=== PATIENT | female | born 2000 | race Caucasian/White ===

== ENCOUNTER → 2021-06-28 14:10 | Outpatient (BNVA) | payer SELFPAY | PROVIDERS: Visit Provider Nurse Practitioner Women's Health | DX: Z01.419 Encounter for gynecological examination (general) (routine) without abnormal findings (principal); Z11.3 Encounter for screening for infections with a predominantly sexual mode of transmission | CPT/HCPCS: 86592; 86803; 87340; 87491; 87591; 87661; 87806; 88175 ==

== ENCOUNTER 2022-02-18 13:08 | Emergency (ER) | payer SELFPAY ==
[2022-02-18 14:15] VITALS: BP 119/70; PULSE 114; RESP 16; TEMP 36.9; O2SAT 99; BMI 34.3
[2022-02-18 15:43] LABS: Basophils # 0.1 10^3/uL (0.0-0.1); Basophils % 0.5 %; Eosinophils # 0.2 10^3/uL (0.0-0.8); Eosinophils % 1.7 %; Hematocrit 39.7 % (37.0-47.0); Hemoglobin 13.4 g/dL (11.5-15.3); Lymphocytes # 3.7 10^3/uL (0.8-4.8); Lymphocytes % 33.9 %; Mean Corpuscular HGB Conc 33.8 g/dL (30.0-36.0); Mean Corpuscular Hemoglobin 27.8 pg (28.0-34.0); Mean Corpuscular Volume 82.4 fl (81-99); Monocytes # 0.7 10^3/uL (0.2-0.9); Monocytes % 6.9 %; Neutrophils # 6.13 10^3/uL (1.8-7.7); Neutrophils % 56.7 %; Nucleated Red Blood Cells % 0 %; Platelet Count 345 10^3/cmm (130-400); Red Blood Count 4.82 10^6/uL (4.1-5.3); Red Cell Distribution Width 12.4 % (12.1-15.1); White Blood Count 10.8 10^3/uL (4.0-10.0)
[2022-02-18 16:00] LABS: Alanine Aminotransferase 12 U/L (0-33); Albumin Level 4.7 g/dL (3.5-5.2); Alkaline Phosphatase 102 IU/L (35-105); Anion Gap 15.3 (5-19); Aspartate Amino Transferase 17 U/L (0-32); Blood Urea Nitrogen 12 mg/dL (6-20); Calcium 9.2 mg/dL (8.5-10.5); Carbon Dioxide 26 mmol/L (22-29); Chloride 102 mmol/L (98-107); Globulin 2.7 g/dL (1.3-4.6); Glucose 90 mg/dL (65-115); Osmolality Calculated 287 mOsm/kg (285-295); Potassium 4.3 mmol/L (3.5-5.1); Sodium 139 mmol/L (136-145); Total Bilirubin 0.5 mg/dL (0.15-1.2); Total Protein 7.4 g/dL (6.6-8.7)
[2022-02-18 16:24] LABS: Add Urine Microscopic? NO; Charge for UA Resulting for Rev
[2022-02-18 16:33] LABS: Bilirubin Urine Neg (Negative); Blood Urine Neg (Negative); Glucose Urine UA Norm (Normal); Ketones Urine Negative (Negative); Leukocyte Esterase Urine Negative (Negative); Nitrate Urine Negative (Negative); Protein Urine Neg (Negative); Specific Gravity, Urine 1.025 (1.005-1.030); Urine Appearance Clear (CLEAR); Urine Color Yellow (Yellow); Urobilinogen Urine 1 mg/dL (Negative); pH Urine 6 (5-7)
[2022-02-18 17:32] LABS: HCG Qualitative Urine. Negative (Negative)
--- NOTE | 2022-02-18 17:42 | USR_ITS ---
PROCEDURE INFORMATION: Exam: US Abdomen, Limited; Right Upper Quadrant Exam date and time: 02/18/2022 5:53 PM Age: 21 years old Clinical indication: Abdominal pain; Additional info: Ruq pain TECHNIQUE: Imaging protocol: US abdomen. Real time ultrasound with image documentation. Limited exam focused on the right upper quadrant. COMPARISON: No relevant prior studies available. FINDINGS: Liver: Unremarkable as visualized. Gallbladder: Partially contracted. No gallstones. No gallbladder wall thickening or pericholecystic fluid. 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 Common bile duct: No stones. No ductal dilatation. US/US gall bladder 90042 IMPRESSION: No acute sonographic findings.
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
[2022-02-18 18:33] VITALS: BP 110/64; PULSE 86; RESP 17; O2SAT 98
[2022-02-18 19:25] VITALS: BP 108/65; PULSE 86; RESP 18; O2SAT 99
== END 2022-02-18 19:36 | disposition home or self-care (01) ==
PROVIDERS: Emergency Medicine; Emergency Provider Nurse Practitioner Family
DX: R10.11 Right upper quadrant pain (principal)
CPT/HCPCS: 36415; 76705; 80053; 81003; 81025; 85025; 99283

== ENCOUNTER 2023-04-01 20:06 | Emergency (ER) | payer SELFPAY ==
[2023-04-01 20:25] VITALS: BP 119/80; PULSE 84; RESP 14; TEMP 36.3; O2SAT 100; BMI 32.3
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
[2023-04-01 21:39] VITALS: BP 119/76; PULSE 81; RESP 14; TEMP 37.1; O2SAT 98
--- NOTE | 2023-04-05 11:35 | DCPLANNER ---
application support manager called patient due to no primary care physician - patient declines at this time.
== END 2023-04-01 22:11 | disposition home or self-care (01) ==
PROVIDERS: Emergency Provider Nurse Practitioner Family
DX: H66.92 Otitis media, unspecified, left ear (principal)
CPT/HCPCS: 99283

== ENCOUNTER 2023-04-04 03:12 | Emergency (ER) | payer SELFPAY ==
[2023-04-04 03:19] VITALS: BP 111/95; PULSE 95; RESP 16; TEMP 37.2; O2SAT 98; BMI 25.8
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
[2023-04-04] MEDS: HYDROcodone-acetaminophen 5-325 mg Tablet 1 TAB PO (03:31)
[2023-04-04 03:33] VITALS: PULSE 105; RESP 16; O2SAT 98
--- NOTE | 2023-04-11 14:17 | DCPLANNER ---
club manager called patient due to no primary care physician - patient declines at this time.
== END 2023-04-04 03:33 | disposition home or self-care (01) ==
PROVIDERS: Emergency Provider Emergency Medicine
DX: H60.91 Unspecified otitis externa, right ear (principal)
CPT/HCPCS: 99283

== ENCOUNTER 2023-11-07 11:51 | Emergency (ER) | payer MEDICAID, SELFPAY ==
[2023-11-07 11:53] VITALS: BP 121/79; PULSE 111; RESP 16; TEMP 37; O2SAT 97; BMI 31.1
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
[2023-11-07 12:20] LABS: Basophils % 0.3 %; Eosinophils # 0.1 10^3/uL (0.0-0.8); Eosinophils % 0.8 %; Hematocrit 35.6 % (36-47); Lymphocytes # 2.5 10^3/uL (0.8-4.8); Lymphocytes % 21.5 %; Mean Corpuscular HGB Conc 34.6 g/dL (30-55); Mean Corpuscular Hemoglobin 28.9 pg (27-33); Mean Corpuscular Volume 83.6 fl (85-98); Mean Platelet Volume 9.7 fL (7.4-10.4); Monocytes # 0.8 10^3/uL (0.2-0.9); Monocytes % 6.8 %; Neutrophils % 70.3 %; Nucleated Red Blood Cells % 0 %; Platelet Count 272 10^3/cmm (157-399); Red Blood Count 4.26 10^6/uL (3.85-5.65); Red Cell Distribution Width 13.3 % (12.1-15.1); White Blood Count 11.81 10^3/uL (3.29-11.43)
[2023-11-07 12:34] LABS: INR 0.98 (0.8-1.2); Partial Thromboplastin Time 27.2 SECONDS (23.9-36.7)
[2023-11-07 12:40] LABS: Alanine Aminotransferase 34 U/L (0-33); Albumin Level 3.9 g/dL (3.5-5.2); Alkaline Phosphatase 65 U/L (35-105); Anion Gap 13.8 (5-19); Aspartate Amino Transferase 22 U/L (0-32); Blood Urea Nitrogen 4 mg/dL (6-20); Calcium 9.3 mg/dL (8.5-10.5); Carbon Dioxide 23 mmol/L (22-29); Chloride 104 mmol/L (98-107); Globulin 3.3 g/dL (1.3-4.6); Glomerular Filtration Rate 152.9 mL/min (90-130); Glucose 73 mg/dL (65-115); Osmolality Calculated 279 mOsm/kg (285-295); Potassium 3.8 mmol/L (3.5-5.1); Sodium 137 mmol/L (136-145); Total Bilirubin 0.5 mg/dL (0.15-1.2); Total Protein 7.2 g/dL (6.6-8.7)
[2023-11-07 12:51] LABS: Add Urine Microscopic? NO; Charge for UA Resulting for Rev
[2023-11-07 13:03] LABS: Bilirubin Urine Neg (Negative); Blood Urine Neg (Negative); Glucose Urine UA Norm (Normal); Ketones Urine Negative (Negative); Leukocyte Esterase Urine Negative (Negative); Nitrate Urine Negative (Negative); Protein Urine Neg (Negative); Urine Appearance Clear (CLEAR); Urine Color Yellow (Yellow); Urobilinogen Urine Neg (Negative); pH Urine 7 (5-7)
== END 2023-11-07 13:27 | disposition home or self-care (01) ==
PROVIDERS: Emergency Provider Family Medicine
DX: K21.9 Gastro-esophageal reflux disease without esophagitis (principal); R11.11 Vomiting without nausea
CPT/HCPCS: 80053; 81003; 85025; 85610; 85730; 99283

== ENCOUNTER 2023-11-20 14:54 | Outpatient (CLI) | payer MEDICAID, SELFPAY ==
[2023-11-20 15:10] VITALS: BMI 31.4
[2023-11-20 15:22] VITALS: RESP 17
--- NOTE | 2023-11-20 15:22 | US_ITS ---
WS: [id number] ULTRASOUND OB FOCUSED HISTORY: possible SROM COMPARISON: None available. Single intrauterine gestation is identified in breech position. Cervix is closed measuring 4.7 cm. Th ere is a normal amount of amniotic fluid surrounding the fetus. [place] is 9.6 cm. heart rate at 153 BPM. Posterior placenta with no previa or abruption. Grade 1. IMPRESSION: 1. Normal amniotic fluid. 2. Posterior placenta with no abruption or previa. 3. Normal cardiac activity.
[2023-11-20 16:33] LABS: Actim Prom Negative
== END 2023-11-20 17:42 | disposition home or self-care (01) ==
LOC: OPOB 14:59 → OBGYN 15:04
PROVIDERS: Obstetrics & Gynecology; Visit Provider Obstetrics & Gynecology
DX: O26.899 Other specified pregnancy related conditions, unspecified trimester (principal); Z3A.00 Weeks of gestation of pregnancy not specified; R10.9 Unspecified abdominal pain; N89.8 Other specified noninflammatory disorders of vagina
CPT/HCPCS: 76815; 84112; 99211

== ENCOUNTER → 2024-01-23 15:22 | Outpatient (BNVA) | payer MEDICAID, SELFPAY | PROVIDERS: Visit Provider Obstetrics & Gynecology | DX: Z3A.25 25 weeks gestation of pregnancy (principal); Z34.90 Encounter for supervision of normal pregnancy, unspecified, unspecified trimester | CPT/HCPCS: 81000; 85025; 86850 ==

== ENCOUNTER → 2024-02-03 07:56 | Outpatient (BNVA) | payer MEDICAID, SELFPAY | PROVIDERS: Visit Provider Obstetrics & Gynecology | DX: Z3A.25 25 weeks gestation of pregnancy (principal) | CPT/HCPCS: 81000; 82950 ==

== ENCOUNTER → 2024-02-20 08:13 | Outpatient (BNVA) | payer MEDICAID, SELFPAY | PROVIDERS: Visit Provider Obstetrics & Gynecology | DX: O09.93 Supervision of high risk pregnancy, unspecified, third trimester (principal) | CPT/HCPCS: 81000 ==

== ENCOUNTER → 2024-02-21 08:22 | Outpatient (BNVA) | payer MEDICAID, SELFPAY | PROVIDERS: Visit Provider Obstetrics & Gynecology | DX: O09.93 Supervision of high risk pregnancy, unspecified, third trimester (principal) | CPT/HCPCS: 82951; 82952 ==

== ENCOUNTER 2024-02-26 18:53 | Outpatient (CLI) | payer MEDICAID, SELFPAY ==
[2024-02-26 19:10] VITALS: BP 121/62; PULSE 102
--- NOTE | 2024-02-26 19:20 | USR_ITS ---
PROCEDURE INFORMATION: Exam: US Biophysical Profile Without Non-Stress Test Exam date and time: 02/26/2024 8:48 PM Age: 23 years old Clinical indication: Injury or trauma; Fall; Injury indication: Patient fell while showering. She landed on her buttocks. No vaginal bleeding. Injury date: 02/26/2024; ; Patient HX: G1-p0-a0-l0 TECHNIQUE: Imaging protocol: US biophysical profile without non-stress testing. COMPARISON: US OB limited [id number] 11/20/2023 3:41 PM FINDINGS: heart rate: 157 bpm presentation: Cephalic Placenta: Posterior and Fundal grade 1 placenta without previa. Amniotic fluid (Qualitative): Amniotic fluid volume is normal. Amniotic fluid index: [place] is 20.93 cm. BIOPHYSICAL PROFILE: breathing (BPP): 2 /2 gross body movement (BPP): 2 /2 tone (BPP): 2 /2 Amniotic fluid (BPP): 2 /2 Biophysical profile score (BPP): 8 /8 MATERNAL ANATOMY: Cervix: Cervical length measures approximately 4 cm. Obscured by the head. US/US OB BPP wo NST [id number] IMPRESSION: 1. Biophysical profile score of 8/8.
[2024-02-26 19:22] VITALS: BMI 32.0
[2024-02-26 21:15] VITALS: BP 121/62; PULSE 102; RESP 16; TEMP 36.7
== END 2024-02-26 21:20 | disposition home or self-care (01) ==
LOC: OPOB 18:56 → OBGYN 18:57
PROVIDERS: Visit Provider Obstetrics & Gynecology
DX: O26.899 Other specified pregnancy related conditions, unspecified trimester (principal); Z3A.00 Weeks of gestation of pregnancy not specified; Z91.81 History of falling
CPT/HCPCS: 59025; 76819; 99211

== ENCOUNTER 2024-03-09 15:53 | Outpatient (CLI) | payer MEDICAID, SELFPAY ==
[2024-03-09 15:53] VITALS: BMI 34.3
[2024-03-09 16:19] VITALS: BP 118/72; PULSE 103
[2024-03-09 16:26] VITALS: BP 118/72; PULSE 103
[2024-03-09 17:57] LABS: Nitrazine Paper, PH Negative
== END 2024-03-09 16:28 | disposition home or self-care (01) ==
LOC: OPOB 15:55 → OBGYN 15:56
PROVIDERS: Visit Provider Obstetrics & Gynecology
DX: O26.899 Other specified pregnancy related conditions, unspecified trimester (principal); Z3A.00 Weeks of gestation of pregnancy not specified; N89.8 Other specified noninflammatory disorders of vagina
CPT/HCPCS: 59025; 83986; 99211

== ENCOUNTER → 2024-03-12 07:47 | Outpatient (BNVA) | payer MEDICAID, SELFPAY | PROVIDERS: Visit Provider Obstetrics & Gynecology | DX: O09.93 Supervision of high risk pregnancy, unspecified, third trimester (principal) | CPT/HCPCS: 81000; 87081 ==

== ENCOUNTER → 2024-03-16 08:03 | Outpatient (BNVA) | payer MEDICAID, SELFPAY | PROVIDERS: Visit Provider Obstetrics & Gynecology | DX: O09.93 Supervision of high risk pregnancy, unspecified, third trimester (principal) | CPT/HCPCS: 81000 ==

== ENCOUNTER 2024-03-26 11:41 | Inpatient (IN) | payer MEDICAID, SELFPAY ==
[2024-03-26] VITALS (12 sets, daily range): BP systolic 115–141; BP diastolic 69–85; PULSE 70–96; RESP 16; TEMP 36.6–36.7; BMI 35.5
[2024-03-26 12:18] LABS: Basophils % 0.4 %; Eosinophils # 0.1 10^3/uL (0.0-0.8); Eosinophils % 0.6 %; Lymphocytes # 2.3 10^3/uL (0.8-4.8); Mean Corpuscular Hemoglobin 28.1 pg (27-33); Mean Corpuscular Volume 82.6 fl (85-98); Mean Platelet Volume 11.1 fL (7.4-10.4); Monocytes # 0.9 10^3/uL (0.2-0.9); Monocytes % 8.2 %; Neutrophils # 7.26 10^3/uL (1.8-7.7); Neutrophils % 68.1 %; Nucleated Red Blood Cells % 0 %; Platelet Count 240 10^3/cmm (157-399); Red Blood Count 3.63 10^6/uL (3.85-5.65); Red Cell Distribution Width 13.1 % (12.1-15.1); White Blood Count 10.64 10^3/uL (3.29-11.43)
[2024-03-26] MEDS: miSOPROStol 100 mcg tablet 25 MCG VAGINAL ×2 (12:28→16:35)
[2024-03-26] MEDS: calcium carbonate 500 mg Chew Tablet 1000 MG PO ×2 (14:16→21:49)
[2024-03-26] MEDS: acetaminophen 325 mg Tablet 650 MG PO (21:49)
[2024-03-26] MEDS: dextrose 5%-lactated ringers 1,000 ML 125 ML IV (22:33)
[2024-03-27] VITALS (65 sets, daily range): BP systolic 97–131; BP diastolic 53–89; PULSE 58–97; RESP 16–19; TEMP 36.7; O2SAT 93–100
[2024-03-27] MEDS: lactated ringers 1,000 ML 999 ML IV ×3 (00:03→11:42)
[2024-03-27] MEDS: fentaNYL 50 mcg/mL INJ 2mL IVP ×3 (00:19→08:45)
[2024-03-27] MEDS: miSOPROStol 100 mcg tablet 25 MCG VAGINAL (02:26)
[2024-03-27] MEDS: calcium carbonate 500 mg Chew Tablet 1000 MG PO ×2 (03:34→15:20)
[2024-03-27] MEDS: ondansetron 2 mg/ML SDV 2 mL 4 MG IVP ×2 (05:05→10:31)
[2024-03-27] MEDS: oxytocin 30 UNIT/500 ML BAG IV (08:39)
[2024-03-27] MEDS: ROPivacaine syringe 100 MG/50 ML SYRINGE 10 MG EPIDURAL (11:43)
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
--- NOTE | 2024-03-27 13:08 | ANES.PROC ---
Anesthesia Procedures Procedure/Date: 03/27/24 Epidural: Time Out Performed: Yes Consents Signed: Procedure Consent Consent: requested by attending/covering physician, from patient, from other, risks and benefits reviewed, patient agrees to proceed and emergency procedure Lumbar Level: L3-L4 Epidural position: laying on side Epidural procedure: sterile prep of area, 1% lidocaine to numb the area, 18 g needle, negative for paresthesia passed, neg for paresthesia, test dose given, 1.5% xylocaine 1:200k epi (5), 0.2% Ropivacaine bolus ml (5), placed PCEA, no systemic response, sterile dressing applied, L.U.D. no apparent complications and 0.2% Ropiavacaine @ mls/hr (13) Additional Comments: Placed epidural L3-4, but became disconnected almost immediately at hub. Attempted to sterilely clean and cut line and attach new sterile tip, but in process discovered the air-fluid level in the epidural had dropped enough that there wouldn't be much slack to allow for patient movement. Due to risk of infection at that point, the epidural was removed and another attempt at L2-3 was taken, but kept encountering bony processes. Dropped back down to L3-4 and placed succcesfully at 5.5 cm, threaded to 11 cm.
[2024-03-27] MEDS: dextrose 5%-lactated ringers 1,000 ML 125 ML IV (14:56)
--- NOTE | 2024-03-27 16:23 | PM.OPHPUD ---
Labor & Delivery H&P Update Date of Procedure: March 27, 2024 Date H&P Performed: 03/26/24 H&P update information: I have reviewed H&P completed within last 30 days, I have examined patient prior to procedure and No changes to prior documentation Admission Diagnosis:
--- NOTE | 2024-03-27 16:24 | P.PCNOB_ITS ---
Delivery Note: Date of delivery: March 27, 2024 Pre-delivery diagnoses: Term Post-delivery diagnoses: Term delivered Procedure: Vacuum-assisted vaginal delivery Delivering Physician: Joaquim Kapoor MD Estimated blood loss (mL): 300 Delivery: The patient was noted to be complete and pushing, so was placed in the dorsal lithotomy position, prepped and draped in the usual sterile fashion for a va ginal delivery. Pt. Noted to have epidural anesthesia. At [] the patient delivered a viable 39 weeks female weighing 3060 g with scores of 7 and 9 at one and five minutes, respectively. The vertex was delivered spontaneously over intact perineum. The patient was asked to push and heart tracing was noted to the decrease outlet vacuum was applied to the head and delivered in the TRA position, over an intact perineum. A nuchal cord was checked and 1 noted, and an relief from around the neck and around head as necessary. The anterior shoulder delivered easily and the posterior shoulder followed. The remainder of the infant was easily delivered and the oropharynx and nasopharynx was bulb suctioned. The infant was noted to have spontaneous cry and spontaneous movement of all four extremities. The cord was clamped x 2 and cut and noted to have 2 arteries and one vein. The infant was passed to the waiting nurse where nursing personnel were in attendance. Cord blood sample was then obtained. The placenta delivered intact spontaneous and the uterus was explored. 20 units of Pitocin was placed in the IV bag to firm the uterus. Examination of the cervix and vaginal vault did not reveal any lacerations. A vaginal pack was then placed. Examination of the perineum showed no laceration. The vaginal pack was then removed. The patient tolerated this procedure well, and recovered in L&D with her [or note if infant taken to NICU]. All sponge and needle counts were correct. Post-Delivery Status: Good and stable History History History 1 Term Miscarriages/Ectopic Living Children A&P Assessment and plan (1) , delivered: Plan observation Coding Level of Care Code Acute Code for Chg Fwd Diagnoses , delivered O80
[2024-03-27] MEDS: HYDROcodone-acetaminophen 5-325 mg Tablet PO (17:42)
[2024-03-27] MEDS: docusate sodium 100 mg Capsule PO (17:43)
[2024-03-27 19:03] LABS: Amphetamines Screen Urine Negative (Negative); Barbiturates Screen Urine Negative (Negative); Benzodiazepines Screen Urine Negative (Negative); Cocaine Screen Urine Negative (Negative); Opiate Screen Urine Negative (Negative); PCP Screen Urine Negative (Negative); THC Screen Urine Negative (Negative)
[2024-03-28 00:28] VITALS: BP 110/72; PULSE 74; O2SAT 98
[2024-03-28] MEDS: HYDROcodone-acetaminophen 5-325 mg Tablet PO (01:32)
[2024-03-28 02:55] VITALS: BP 113/71; PULSE 68; RESP 16
[2024-03-28 04:55] VITALS: BP 118/74; PULSE 82; RESP 16; TEMP 36.8
[2024-03-28 05:00] LABS: Hematocrit 29.6 % (36-47); Mean Corpuscular HGB Conc 32.8 g/dL (30-55); Mean Corpuscular Hemoglobin 27.6 pg (27-33); Mean Corpuscular Volume 84.3 fl (85-98); Mean Platelet Volume 10.8 fL (7.4-10.4); Platelet Count 225 10^3/cmm (157-399); Red Blood Count 3.51 10^6/uL (3.85-5.65); Red Cell Distribution Width 13.1 % (12.1-15.1); White Blood Count 13.93 10^3/uL (3.29-11.43)
--- NOTE | 2024-03-28 08:00 | ANE.PACU2 ---
Inpatient post-anesthesia follow up: Airway intact: Yes Vital signs: Temperature 98.4 F Pulse Rate 71 Respiratory Rate 16 Blood Pressure 118/81 Pulse Oximetry 98 Oxygen Delivery Me thod Room Air Oxygen Flow Rate 10 Fraction of Inspir ed Oxygen Hydration adequate: Yes Nausea and vomiting: No Pain level: 1 Mental status: Baseline Epidural Start/End: Epidural Start Date: 03/25/24 Epidural Start Time: 11:40 Epidural End Date: 03/25/24 Epidural End Time: 18:00
[2024-03-28] MEDS: PRENATAL VIT NO.130/IRON/FOLIC 1 EACH TABLET PO (08:52)
[2024-03-28] MEDS: docusate sodium 100 mg Capsule PO (08:52)
[2024-03-28] MEDS: ibuprofen 800 mg tablet PO ×2 (08:52→15:50)
[2024-03-28 10:20] VITALS: BP 121/78; PULSE 78; TEMP 36.7
[2024-03-28] MEDS: benzocaine-menthol 78 gm Canister 1 SPRAY TOPICAL (11:35)
[2024-03-28] MEDS: lanolin oint 7 gm 1 APPLIC TOPICAL (11:35)
--- NOTE | 2024-03-28 15:22 | PM.OBGYDC ---
Discharge Providers RESIDENCE HALL DIRECTOR Date of Admission: 03/26/24 11:41 Date of Discharge: 03/28/24 Attending Provider at Admission: Joaquim Kapoor MD Attending Provider at Discharge: Joaquim Kapoor MD Primary RESIDENCE HALL DIRECTOR: Joaquim Kapoor MD Reason for Visit Reason for Visit: IOL Hospital Course Hospital Course Ms. Nelson 23-year-old female G1, P1 with estimated gestational age of 39 weeks, admitted for elective induction. Misoprostol was given for cervical ripening follow-up by oxytocin augmentation. She had an outlet vacuum assisted vaginal delivery without complications. She delivered a viable 39 weeks female infant weighing 3060 g with scores of 7 and 9. observation was uneventful. Tolerating diet well. Ambulating without difficulty. She was counseled regarding pelvic rest for 6 weeks (no sex, no tampons, no vaginal douches). Return to the emergency room if any fever, increased bleeding or pain and scheduled to follow-up at the clinic at the 6-week visit. Physical Exam Narrative: GA; alert and oriented x 3 HEENT: normal Breasts: engorged Nipples - skin intact Lungs; clear to auscultation Heart: regular rhythm, no murmurs. Abd: Appropriately tender. BS+. Uterine fundus below umbilicus. No Fundal Tenderness. Perineum: normal lochia. Extremities: no edema, no cyanosis, no tenderness. Urinary Catheter Management: Alva: Cath Placed During This Visit: yes, but has since been removed by the nurse Reason for Continuing Indwelling Catheter: Decision to DC Catheter Urinary Catheter Date of Insertion: 03/27/24 Urinary Catheter Time of Insertion: 12:04 Date Urinary Catheter Removed: 03/27/24 Time Urinary Catheter Discontinued: 13:12 History History History 1 Term Miscarriages/Ectopic Living Children Discharge Data Studies Completed and Pending Laboratory Results WBC 13.93 10^3/uL (3.29-11.43) H 03/28/24 04:54 RBC 3.51 10^6/uL (3.85-5.65) L 03/28/24 04:54 Hgb 9.70 g/dL (11.27-16.99) L 03/28/24 04:54 Hct 29.6 % (36-47) L 03/28/24 04:54 MCV 84.3 fl (85-98) L 03/28/24 04:54 MCH 27.6 pg (27-33) 03/28/24 04:54 MCHC 32.8 g/dL (30-55) 03/28/24 04:54 RDW 13.1 % (12.1-15.1) 03/28/24 04:54 Plt Count 225 10^3/cmm (157-399) 03/28/24 04:54 MPV 10.8 fL (7.4-10.4) H 03/28/24 04:54 Neut % (Auto) 68.1 % 03/26/24 11:52 Lymph % (Auto) 22.0 % 03/26/24 11:52 [place] % (Auto) 8.2 % 03/26/24 11:52 Eos % (Auto) 0.6 % 03/26/24 11:52 Baso % (Auto) 0.4 % 03/26/24 11:52 Neut # (Auto) 7.26 10^3/uL (1.8-7.7) 03/26/24 11:52 Lymph # (Auto) 2.3 10^3/uL (0.8-4.8) 03/26/24 11:52 [place] # (Auto) 0.9 10^3/uL (0.2-0.9) 03/26/24 11:52 Eos # (Auto) 0.1 10^3/uL (0.0-0.8) 03/26/24 11:52 Baso # (Auto) 0.0 10^3/uL (0.0-0.1) 03/26/24 11:52 Nucleated RBC % (auto) 0 % 03/26/24 11:52 Nucleated RBCs # 0.0 /100WBC 03/26/24 11:52 Urine Opiates Screen Negative ng/mL (Negative) 03/27/24 11:40 Ur Barbiturates Screen Negative ng/mL (Negative) 03/27/24 11:40 Ur Phencyclidine Scrn Negative ng/mL (Negative) 03/27/24 11:40 Ur Amphetamines Screen Negative ng/mL (Negative) 03/27/24 11:40 U Benzodiazepines Scrn Negative ng/mL (Negative) 03/27/24 11:40 Urine Cocaine Screen Negative ng/mL (Negative) 03/27/24 11:40 U Marijuana (THC) Screen Negative ng/mL (Negative) 03/27/24 11:40 Blood Type O Negative 03/26/24 11:52 Rho(D) Type Rh negative 03/26/24 11:52 Antibody Screen Positive 03/26/24 11:52 Antibody Identification Anti-D 03/26/24 11:52 Vitals Last Vital Signs Temp 98.0 F 03/28/24 10:20 Pulse 78 03/28/24 10:20 Resp 16 03/28/24 04:55 BP 121/78 03/28/24 10:20 Pulse Ox 98 03/28/24 00:28 O2 Del Method Room Air 03/28/24 10:20 O2 Flow Rate 10 03/27/24 15:03 Results Labs OB ([facility]): Obstetrics US 11/20/23 Obstetrics US/Biophysical Profile 02/26/24 Blood Type O Negative 03/26/24 Antibody Screen Positive 03/26/24 Hct 29.6 % (36-47) L 03/28/24 Hgb 9.70 g/dL (11.27-16.99) L 03/28/24 Rho(D) Type Rh negative 03/26/24 Plt Count 225 10^3/cmm (157-399) 03/28/24 Hep Bs Antigen Non-reactive (Nonreactive) 06/28/21 Hepatitis C Antibody Non-reactive (Nonreactive) 06/28/21 RPR Nonreactive (Nonreactive) 06/28/21 HIV 1&2 Ab & HIV 1 Ag Non-reactive (Non-Reactiv) 06/28/21 Glucose 1 Hr 50 gm 173 mg/dL (85-140) H 02/03/24 Gest Glucose Tolerance mg/dL 02/21/24 HCG, Qual Negative (Negative) 02/18/22 Urine Opiates Screen Negative ng/mL (Negative) 03/27/24 Ur Barbiturates Screen Negative ng/mL (Negative) 03/27/24 Ur Phencyclidine Scrn Negative ng/mL (Negative) 03/27/24 Ur Amphetamines Screen Negative ng/mL (Negative) 03/27/24 U Benzodiazepines Scrn Negative ng/mL (Negative) 03/27/24 Urine Cocaine Screen Negative ng/mL (Negative) 03/27/24 U Marijuana (THC) Screen Negative ng/mL (Negative) 03/27/24 Pap Smear Interpret See note A 06/28/21 Discharge Plan Discharge Patient Disposition: Home Condition: Stable Prescriptions: New docusate sodium [Colace] 100 mg capsule 100 mg PO BID Qty: 60 0RF ibuprofen 800 mg tablet 800 mg PO TID PRN (Reason: pain) Qty: 60 0RF acetaminophen 325 mg capsule 325 mg PO Q4H PRN (Reason: fever or pain) Qty: 60 0RF ferrous sulfate [Iron (ferrous sulfate)] 325 mg (65 mg iron) tablet 325 mg PO BID Qty: 60 0RF Continued PNV cmb#95-ferrous fumarate-FA [] 28 mg iron- 800 mcg Tablet 1 tab PO DAILY Discharge Orders: Discharge Order (Routine); Ordered 03/28/24 Ordered By: Joaquim Kapoor Discharge Diet: Regular Discharge Activity: Limit activity as instructed Patient Instructions: Caring for Your Baby (GEN), Bleeding (GEN), Vaginal Delivery (GEN), Your [place]'s Appearance (GEN), Opioid Safety Activity Restrictions/Additional Instructions: 1. Please call [facility] on next working day to make your visit appointment in 6 weeks. 2. Please stay home until you come back to the clinic on first post-hospatilization check up. 3. Please follow instructions on your medications CAREFULLY. 4. If you have abdominal incision, do not cover it unless dressing is necessary because of drainage. OK to shower, but avoid bath. Leave steri-strips until they fall off. If they are still on one week after surgery, you may remove them. 5. If you had vaginal surgery or vaginal repair, Dr. Kapoor may instruct you to take SITZ bath. 6. Yellow, blood tinged odorous vaginal discharge is usually normal after hysterectomy or vaginal surgeries. 7. No SEXUAL INTERCOURSE, tampons, or douches until you are completely released from the post-operative care. 8. Avoid constipation by eating right and maybe using some Metamucil or Milk of Magnesia. 9. All prescription refills are given during the working hours. Please do no wait till it runs out. Call the clinic at [phone] before your medication runs out. The clinic will get in touch with your doctor to prescribe medications if necessary. 10. Please remain within 40 mile radius from our hospital because emergencies do happen now and then during the post-operative period. 11. If you have stairs at home, take one step at a time slowly and minimize the number of trips. It helps to stay in one floor for the next few days. No lifting except what you can lift by one hand until you are released from the post-operative care. 12. Driving is discouraged until you are well healed. It may be 3-4 weeks before you feel strong enough to drive. You should be able to turn and look through the rear window without pain and you should be able to push the brake pedal very hard without pain before you drive. No fast rules, but SAFETY should be your primary concern. DO NOT drive if you are on sedating medications such as narcotics. 13. Call the clinic (during working hours) to make urgent appointment or go to the Emergency room, if any of the following occurs: i. Vaginal bleeding becomes heavy, more than a period. ii. Incision becomes red and sore, or drains pus. iii. Your TEMPERATURE is over 100.4F or you have chill. iv. IV site becomes red and swollen (a little ``knot?? is usually OK) v. Persistent nausea and vomiting vi. Persistent constipation or diarrhea vii. Rash or allergic reaction to medications. Discharge Attestations RESIDENCE HALL DIRECTOR Time Spent in Discharge Care*: greater than 30 min Coding Level of Care Code Acute Code for Chg Fwd
[2024-03-28 18:00] VITALS: BP 118/81; PULSE 71; TEMP 36.9
== END 2024-03-28 18:38 | disposition home or self-care (01) | DRG 807 ==
LOC: OPOB 11:43 → OBGYN 11:43
PROVIDERS: Admitting Provider Obstetrics & Gynecology; Visit Provider Obstetrics & Gynecology
DX: O99.344 Other mental disorders complicating childbirth (principal); Z37.0 Single live birth; F41.9 Anxiety disorder, unspecified; O69.81X0 Labor and delivery complicated by cord around neck, without compression, not applicable or unspecified; Z3A.39 39 weeks gestation of pregnancy; O26.893 Other specified pregnancy related conditions, third trimester; Z67.41 Type O blood, Rh negative
CPT/HCPCS: 36415; 51702; 59025; 59409; 80306; 80503; 81000; 85025; 85027; 86850; 86870; 86900; 96374; 96376; J2405; J2590; J2795; J3010; J7120; J7121

== ENCOUNTER → 2024-04-24 09:52 | Outpatient (BNVA) | payer MEDICAID, SELFPAY | PROVIDERS: Visit Provider Obstetrics & Gynecology | DX: Z30.09 Encounter for other general counseling and advice on contraception (principal) | CPT/HCPCS: 81025 ==

== ENCOUNTER 2024-10-23 08:26 | Emergency (ER) | payer MEDICAID, SELFPAY ==
[2024-10-23 08:48] VITALS: BP 121/81; PULSE 98; RESP 18; TEMP 36.8; O2SAT 95
[2024-10-23 09:26] LABS: Bilirubin Urine Negative (Negative); Blood Urine Negative (Negative); Glucose Urine UA Negative (Normal); Ketones Urine Negative (Negative); Leukocyte Esterase Urine 1+ (Negative); Nitrate Urine Negative (Negative); Protein Urine Negative (Negative); Specific Gravity, Urine 1.014 (1.005-1.030); Urine Appearance Clear (CLEAR); Urine Color Yellow (Yellow); pH Urine 5.5 (5-7)
[2024-10-23 09:28] LABS: Add Urine Microscopic? YES; Bacteria Urine Trace /hpf; Hyaline Casts Urine 0-4 /lpf; RBC Urine 0-2 /hpf (0-2); Squamous Epithelial Cell Urine 0-5 /hpf (0-5)
[2024-10-23 09:32] LABS: Add Urine Culture? Yes
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
[2024-10-23 09:50] LABS: Basophils # 0.1 10^3/uL (0.0-0.1); Basophils % 0.6 %; Eosinophils # 0.2 10^3/uL (0.0-0.8); Hematocrit 39.4 % (36-47); Lymphocytes % 33.3 %; Mean Corpuscular HGB Conc 32.2 g/dL (30-55); Mean Corpuscular Hemoglobin 26.3 pg (27-33); Mean Corpuscular Volume 81.6 fl (85-98); Monocytes # 0.6 10^3/uL (0.2-0.9); Monocytes % 6.9 %; Neutrophils # 5.09 10^3/uL (1.8-7.7); Nucleated Red Blood Cells % 0 %; Platelet Count 297 10^3/cmm (157-399); Red Blood Count 4.83 10^6/uL (3.85-5.65); White Blood Count 8.93 10^3/uL (3.29-11.43)
[2024-10-23 10:01] LABS: HCG, Serum Qual Negative (Negative)
[2024-10-23 10:07] LABS: Alanine Aminotransferase 27 U/L (0-33); Albumin Level 4.3 g/dL (3.5-5.2); Alkaline Phosphatase 123 U/L (35-105); Anion Gap 14.2 (5-19); Aspartate Amino Transferase 23 U/L (0-32); Blood Urea Nitrogen 12 mg/dL (6-20); Calcium 9.1 mg/dL (8.5-10.5); Carbon Dioxide 24 mmol/L (22-29); Chloride 102 mmol/L (98-107); Creatinine Clr Calc Pharmacy 124.5498; Globulin 2.8 g/dL (1.3-4.6); Glomerular Filtration Rate 102.8 mL/min (90-130); Glucose 103 mg/dL (65-115); Osmolality Calculated 282 mOsm/kg (285-295); Potassium 4.2 mmol/L (3.5-5.1); Sodium 136 mmol/L (136-145); Total Bilirubin 0.5 mg/dL (0.15-1.2); Total Protein 7.1 g/dL (6.6-8.7)
[2024-10-23 10:30] VITALS: BP 118/70; PULSE 88; O2SAT 94
== END 2024-10-23 10:31 | disposition home or self-care (01) ==
PROVIDERS: Emergency Provider Family Medicine
DX: N30.90 Cystitis, unspecified without hematuria (principal); K52.9 Noninfective gastroenteritis and colitis, unspecified
CPT/HCPCS: 80053; 81001; 84703; 85025; 87077; 87086; 87186; 99283

== ENCOUNTER 2024-12-08 10:23 | Emergency (ER) | payer MEDICAID, SELFPAY ==
[2024-12-08 10:32] VITALS: BP 116/72; PULSE 112; TEMP 36.8; O2SAT 96; BMI 27.4
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
== END 2024-12-08 11:12 | disposition home or self-care (01) ==
PROVIDERS: Emergency Provider Physician Assistant
DX: K52.9 Noninfective gastroenteritis and colitis, unspecified (principal)
CPT/HCPCS: 99281

== ENCOUNTER 2025-01-28 08:18 | Emergency (ER) | payer MEDICAID, SELFPAY ==
[2025-01-28 08:35] VITALS: BP 136/88; PULSE 108; RESP 16; TEMP 36.6; O2SAT 97; BMI 29.0
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
== END 2025-01-28 10:29 | disposition home or self-care (01) ==
PROVIDERS: Emergency Provider Family Medicine
DX: J06.9 Acute upper respiratory infection, unspecified (principal); R05.9 Cough, unspecified
CPT/HCPCS: 99282

== ENCOUNTER 2025-04-01 14:02 | Emergency (ER) | payer MEDICAID, SELFPAY ==
[2025-04-01 14:11] VITALS: BP 111/75; PULSE 102; RESP 16; TEMP 36.9; O2SAT 99; BMI 32.5
--- NOTE | 2025-04-01 14:27 | XRR_ITS ---
PROCEDURE INFORMATION: Exam: XR Right Hand Exam date and time: 04/01/2025 3:02 PM Age: 24 years old Clinical indication: Pain; Finger(s); Right; Additional info: Right thumb injury TECHNIQUE: Imaging protocol: Radiologic exam of the right hand. Views: 3 or more views. COMPARISON: No relevant prior studies available. FINDINGS: Bones/joints: Normal. Soft tissues: Normal. XR/XR hand RT min 3V* [id number] IMPRESSION: No acute findings.
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
--- NOTE | 2025-04-01 15:04 | XRR_ITS ---
PROCEDURE INFORMATION: Exam: XR Right Finger(s) Exam date and time: 04/01/2025 3:14 PM Age: 24 years old Clinical indication: Injury or trauma; Other: Unknown; Blunt trauma (contusions or hematomas); Finger; Right; Thumb; Additional info: Thumb contusion TECHNIQUE: Imaging protocol: Radiologic exam of the right fingers. Views: Minimum 2 views. COMPARISON: CR XR hand RT min 3V* [id number] 04/01/2025 3:02 PM FINDINGS: Bones/joints: Normal. Soft tissues: Normal. XR/XR finger RT min 2V [id number] IMPRESSION: No acute findings.
== END 2025-04-01 15:34 | disposition home or self-care (01) ==
PROVIDERS: Emergency Provider Physician Assistant
DX: S60.011A Contusion of right thumb without damage to nail, initial encounter (principal); W23.0XXA Caught, crushed, jammed, or pinched between moving objects, initial encounter
CPT/HCPCS: 73130; 73140; 99283

== ENCOUNTER 2025-04-14 08:05 | Emergency (ER) | payer MEDICAID, SELFPAY ==
[2025-04-14 08:30] VITALS: BP 104/71; PULSE 90; RESP 16; TEMP 36.9; O2SAT 98; BMI 33.3
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
== END 2025-04-14 09:54 | disposition home or self-care (01) ==
PROVIDERS: Emergency Provider Family Medicine
DX: B34.9 Viral infection, unspecified (principal)
CPT/HCPCS: 99281

== ENCOUNTER 2025-05-06 20:25 | Emergency (ER) | payer SELFPAY ==
--- OUTSIDE RECORDS SUMMARY | 2025-05-06 20:30 | XMS_ITS | Clinical Summary ---
Author Organization [facility] Address [address] [place]: Epic Prelude ADT [place] [id number] Care Team Providers Care Operations And Maintenance Technician Name Role Phone Unavailable Primary Care Provider Unavailabl e Allergies Active Allergy Reactions Criticality Noted Date Comments Penicillins Shortness of Breath/Wheezing,Swelling High 10/13/2014 Family History Medical History Relation Name Comments Healthy Brother Asthma Daughter Healthy Father Anemia Maternal Grandmother Healthy Maternal Grandmother Healthy Mother Relation Name Status Comments Brother Daughter Father Maternal Grandmother Mother Social History Tobacco Use Types Packs/Day Years Used Date Smoking Tobacco: Never Smokeless Tobacco: Never Alcohol Use Standard Drinks/Week Comments No 0 (1 standard drink = 0.6 oz pur e alcohol) Comments Unknown Sex and Gender Information Value Date Recorded Sex Assigned at Not on file 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
--- OUTSIDE RECORDS SUMMARY | 2025-05-06 20:30 | XMS_ITS | Clinical Summary ---
Author Organization [facility] Address [address] 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 Gender Identity Not on file Sexual Orientation Not on file Last Filed Vital Signs Vital Sign Reading Time Taken Comments Blood Pressure 114/80 10/13/2014 12:02 PM PRODUCTION WEIGHER Pulse 97 10/13/2014 12:02 PM PRODUCTION WEIGHER Temperature - - Respiratory Rate - - Oxygen Saturation - - Inhaled Oxygen Concentration - - Weight 63.5 kg (140 lb) 10/13/2014 12:02 PM PRODUCTION WEIGHER Height 162.6 cm (5' 4 ) 10/13/2014 12:02 PM PRODUCTION WEIGHER Body Mass Index 24.03 10/13/2014 12:02 PM PRODUCTION WEIGHER Plan of Treatment Health Maintenance Due Date Last Done Comments HPV VACCINES (1 - 3-dose series) 2014 DTAP/TDAP/TD VACCINES (1 - Tdap) 2018 HEPATITIS B VACCINES (1 of 3 - 19+ 3-dose series) 10/28 CERVICAL CANCER SCREENING 2020 HPV/Cotest (21-29) 2020 PAP SMEAR 2020 INFLUENZA VACCINE (#1) 2025 [place]
[2025-05-06 20:35] VITALS: BP 114/67; PULSE 82; RESP 16; TEMP 37.6; O2SAT 96; BMI 32.5
[2025-05-07 02:27] LABS: Hematocrit 40.4 % (36-47); Hemoglobin 12.90 g/dL (11.27-16.99); Mean Corpuscular HGB Conc 31.9 g/dL (30-55); Mean Corpuscular Hemoglobin 25.7 pg (27-33); Mean Corpuscular Volume 80.5 fl (85-98); Nucleated Red Blood Cells % 0 %; Platelet Count 274 10^3/cmm (157-399); Red Blood Count 5.02 10^6/uL (3.85-5.65); White Blood Count 12.62 10^3/uL (3.29-11.43)
[2025-05-07 02:37] LABS: Alanine Aminotransferase 12 U/L (0-33); Albumin Level 4.4 g/dL (3.5-5.2); Alkaline Phosphatase 86 U/L (35-105); Aspartate Amino Transferase 16 U/L (0-32); Blood Urea Nitrogen 13 mg/dL (6-20); Calcium 9.1 mg/dL (8.5-10.5); Carbon Dioxide 24 mmol/L (22-29); Chloride 101 mmol/L (98-107); Creatinine Clr Calc Pharmacy 140.0897; Globulin 3.0 g/dL (1.3-4.6); Glucose 100 mg/dL (65-115); Osmolality Calculated 284 mOsm/kg (285-295); Sodium 137 mmol/L (136-145); Total Protein 7.4 g/dL (6.6-8.7)
[2025-05-07 02:39] LABS: Anion Gap 16.2 (5-19); Potassium 4.2 mmol/L (3.5-5.1)
[2025-05-07 03:03] LABS: Glucose Urine UA Negative (Normal); Nitrate Urine Negative (Negative); Specific Gravity, Urine 1.021 (1.005-1.030)
[2025-05-07 03:08] LABS: Add Urine Microscopic? YES
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
[2025-05-07] MEDS: diphenhydrAMINE 50 mg/mL SDV 1mL IVP (03:27)
--- NOTE | 2025-05-07 04:55 | CTR_ITS ---
PROCEDURE INFORMATION: Exam: CT Head Without Contrast Exam date and time: 05/07/2025 5:01 AM Age: 24 years old Clinical indication: Pain; Headache not specified; Additional info: Intractable headache TECHNIQUE: Imaging protocol: Computed tomography of the head without contrast. Radiation optimization: All CT scans at this facility use at least one of these dose optimization techniques: automated exposure control; mA and/or kV adjustment per patient size (includes targeted exams where dose is matched to clinical indication); or iterative reconstruction. COMPARISON: No relevant prior studies available. RADIATION DOSE METRICS: Total DLP (mGy-cm): 1128.9 FINDINGS: Brain: Normal. No hemorrhage. Unremarkable white matter. No mass effect. Cerebral ventricles: No ventriculomegaly. Paranasal sinuses: Visualized sinuses are unremarkable. No fluid levels. Mastoid air cells: Visualized mastoid air cells are well aerated. Bones: Unremarkable. No acute fracture. Soft tissues: Unremarkable. CT/CT head wo con* [id number] IMPRESSION: No acute intracranial abnormality.
[2025-05-07] MEDS: magnesium sulfate premix 2 GM/50 ML PIGGYBACK IV (05:12)
[2025-05-07 05:16] LABS: HCG Qualitative Urine. Negative (Negative)
[2025-05-07 06:17] VITALS: BP 127/77; PULSE 74; RESP 18; O2SAT 97
== END 2025-05-07 06:25 | disposition home or self-care (01) ==
PROVIDERS: Emergency Provider Family Medicine
DX: R51.9 Headache, unspecified (principal); R11.0 Nausea; H53.9 Unspecified visual disturbance
CPT/HCPCS: 36415; 70450; 80053; 81001; 81025; 85025; 96365; 96375; 99285; J0780; J1100; J1200; J3475; J7030

== ENCOUNTER 2025-07-24 07:56 | Emergency (ER) | payer SELFPAY ==
--- OUTSIDE RECORDS SUMMARY | 2025-07-24 08:01 | XMS_ITS | Clinical Summary ---
Author Organization [facility] Address [address] 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
--- OUTSIDE RECORDS SUMMARY | 2025-07-24 08:01 | XMS_ITS | Clinical Summary ---
Author Organization [employer] [facility] Address [address] 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
--- OUTSIDE RECORDS SUMMARY | 2025-07-24 08:01 | XMS_ITS | Data Portability ---
Author Organization [facility] Ronny Murguia, [facility] Address [address] [address] Assessment Encounter Date Assessment Date Assessment LastModified by Organization Details LastModified Time 09/11/2023 09/11/2023 I reviewed what to avoid in and the plan of care. [email or web address] Not available 09/11/2023 15:39:08 Plan of Treatment Reminders Order Date Submit Date Provider Last Modified By Organization Details Last Modified Time Details Appointments None recorded. Lab HIV 1+2 Ab + HIV1 p24 Ag, quantitativ e immunoassay , serum 2022 023 [email or web address] [facility], [address] [place] [address] [address], [address], [place], [address], 3 07:25:57 urinalysis, complete 2022 023 [email or web address] [facility], [address] [place] [address] 248, [address], [place], [address], 3 07:25:53 hepatitis C Ab, serum 2022 023 vzaar [facility], [address] [facility] [address], [address], [place], [place], [address], 3 12:07:22 chlamydia + gonorrhea DNA panel, unspecified specimen 2022 023 vzaar [facility], [address] [place] [address] 248, [address], [place], [address], 3 12:07:14 trichomonas vaginalis DNA, PCR, unspecified specimen 2022 023 [facility], [address] [place] [address] 248, [address], [place], [address], 3 12:07:17 drug test, urine 2022 023 [facility], [address] [place] [address] 248, [address], [place], [address], 4 08:09:03 ABO group, blood 2022 023 [email or web address] [facility], [address] [place] [address] 248, [address], [place], [address], 4 08:09:03 ABO group + Rh type, blood (donor) 2022 023 [email or web address] [facility], [address] [place] [address] 248, [address], [place], [address], 4 08:09:03 blood group antibody investigati on, plasma or RBC 2022 023 [facility], [address] [place] [address] 248, [address], [place], [address], 4 08:09:03 HBsAg (hepatitis B surface Ag), serum 2022 023 vzaar [facility], [address] [place] [address] 248, [address], [place], [address], 3 07:25:55 syphilis Ab, igg 2022 023 [email or web address], [address] [place] [address] 248, [address], [place], [address], 4 08:09:04 rubella Ab, serum 2022 023 [email or web address] 40 [facility], [address] [place] [address] [address], [address], [place], [address], 4 08:09:04 CBC w/ auto diff 2022 023 [facility], [address] [place] [address] 248, [address], [place], [address], 3 07:25:54 culture (colony count), urine 2022 023 [email or web address] 40 [facility], [address] [place] [address] 248, [address], [place], [address], 4 08:09:04 sher wet prep 2022 023 [facility] ([facility]), [address] [place] [address], [address], 3 17:25:41 pap, LB 2022 023 [facility], [address] [place] [address] 248, [address], [place], [address], 3 05:16:18 unlisted lab - qnatal(R) advanced 2022 023 [facility], [address] [place] [address] 248, [address], [place], [address], 3 07:25:57 test, urine [address] ([facility]), [address] [place] [address], [address], 3 09:40:27 Referral None recorded. Procedures None recorded. Surgeries None recorded. Imaging US, obstetric, maternal evaluation + anatomy 2023 024 [email or web address] 2 [facility] ([facility]), [address] [place], [address], 4 11:23:34 US, obstetric, 1st trimester - [address] 2022 023 [email or web address] [facility] ([facility]), [address] [place], [address], 3 14:00:44 Medication Orders ondansetron 4 mg disintegrat ing tablet 2022 023 [facility], [address], [place], [address], 3 12:06:25 Vitamin 27 mg iron-0.8 mg tablet [address], [address], [place], [address], 3 09:40:27 Patient TargetsNo targets recorded. Patient InstructionsNo instructions recorded. Reason for Referral None Reported. Results Created Date Observation Date Name Description Value Unit Range Abnormal Flag Note LastModifiedBy Organization Detail LastModifiedTime 09/11/2009/11/2023 pregn elizabeth test, urine HCG positi ve Not Available [facility] ([facility]) [address] [place] [address], [address], 09/11/2023 13:20:33 10/15/20 23 10/16/2023 URINA LYSIS , COMPL ETE color DARK YELLOW yellow normal Not Available [facility] [address] [place], [address], 10/16/2023 09:32:03 10/15/20 23 10/16/2023 URINA LYSIS , COMPL ETE appearance TURBID clear abnormal Not Available [facility] [address] [place], [address], 10/16/2023 09:32:03 10/15/20 23 10/16/2023 URINA LYSIS , COMPL ETE specific gravity 1.030 1.001- 1.035 normal Not Available [address], [address], 10/16/2023 09:32:03 10/15/20 23 10/16/2023 URINA LYSIS , COMPL ETE pH 5.5 5.0-8. 0 normal Not Available [address], [address], 10/16/2023 09:32:03 10/15/20 23 10/16/2023 URINA LYSIS , COMPL ETE glucose NEGATI VE negati ve normal Not Available [address], [address], 10/16/2023 09:32:03 10/15/20 23 10/16/2023 URINA LYSIS , COMPL ETE bilirubin NEGATI VE negati ve normal Not Available [address], [address], 10/16/2023 09:32:03 10/15/20 23 10/16/2023 URINA LYSIS , COMPL ETE ketones TRACE negati ve abnormal Not Available [address], [address], 10/16/2023 09:32:03 10/15/20 23 10/16/2023 URINA LYSIS , COMPL ETE occult blood NEGATI VE negati ve normal Not Available [address], [address], 10/16/2023 09:32:03 10/15/20 23 10/16/2023 URINA LYSIS , COMPL ETE protein TRACE negati ve abnormal Not Available [address], [address], 10/16/2023 09:32:03 10/15/20 23 10/16/2023 URINA LYSIS , COMPL ETE nitrite NEGATI VE negati ve normal Not Available [address], [address], 10/16/2023 09:32:03 10/15/20 23 10/16/2023 URINA LYSIS , COMPL ETE leukocyte esterase 1+ negati ve abnormal Not Available [address], [address], 10/16/2023 09:32:03 10/15/20 23 10/16/2023 URINA LYSIS , COMPL ETE WBC 6-10 /hpf < or = 5 abnormal Not Available [address], [address], 10/16/2023 09:32:03 10/15/20 23 10/16/2023 URINA LYSIS , COMPL ETE RBC NONE SEEN /hpf < or = 2 normal Not Available [address], [address], 10/16/2023 09:32:03 10/15/20 23 10/16/2023 URINA LYSIS , COMPL ETE squamous epithelial cells 6-10 /hpf < or = 5 abnormal Not Available [address], [address], 10/16/2023 09:32:03 10/15/20 23 10/16/2023 URINA LYSIS , COMPL ETE bacteria FEW /hpf none seen abnormal Not Available [facility] [address], [address], 10/16/2023 09:32:03 10/15/20 23 10/16/2023 URINA LYSIS , COMPL ETE calcium oxalate crystals FEW /hpf none or few normal Not Available [address], [address], 10/16/2023 09:32:03 10/15/20 23 10/16/2023 URINA LYSIS , COMPL ETE amorphous sediment MANY /hpf none or few abnormal Not Available [address], [address], 10/16/2023 09:32:03 10/15/20 23 10/16/2023 URINA LYSIS , COMPL ETE hyaline cast 0-1 /lpf none seen abnormal Not Available [address], [address], 10/16/2023 09:32:03 10/15/20 23 10/16/2023 CBC (INCL UDES DIFF/ PLT) white blood cell count 10.0 thous and/u L 3.8-10 .8 normal Not Available [address], [address], 10/16/2023 07:25:54 10/15/20 23 10/16/2023 CBC (INCL UDES DIFF/ PLT) red blood cell count 4.51 gary on/uL 3.80-5 .10 normal Not Available [address], [address], 10/16/2023 07:25:54 10/15/20 23 10/16/2023 CBC (INCL UDES DIFF/ PLT) hemoglobin 13.1 g/dL 11.7-1 5.5 normal Not Available [address], [address], 10/16/2023 07:25:54 10/15/20 23 10/16/2023 CBC (INCL UDES DIFF/ PLT) hematocrit 38.1 % 35.0-4 5.0 normal Not Available [address], [address], 10/16/2023 07:25:54 10/15/20 23 10/16/2023 CBC (INCL UDES DIFF/ PLT) MCV 84.5 fL 80.0-1 00.0 normal Not Available [address], [address], 10/16/2023 07:25:54 10/15/20 23 10/16/2023 CBC (INCL UDES DIFF/ PLT) MCH 29.0 pg 27.0-3 3.0 normal Not Available [address], [address], 10/16/2023 07:25:54 10/15/20 23 10/16/2023 CBC (INCL UDES DIFF/ PLT) MCHC 34.4 g/dL 32.0-3 6.0 normal Not Available [address], [address], 10/16/2023 07:25:54 10/15/20 23 10/16/2023 CBC (INCL UDES DIFF/ PLT) RDW 13.3 % 11.0-1 5.0 normal Not Available [address], [address], 10/16/2023 07:25:54 10/15/20 23 10/16/2023 CBC (INCL UDES DIFF/ PLT) platelet count 270 thous and/u L 140-40 0 normal Not Available [address], [address], 10/16/2023 07:25:54 10/15/20 23 10/16/2023 CBC (INCL UDES DIFF/ PLT) MPV 10.9 fL 7.5-12 .5 normal Not Available [address], [address], 10/16/2023 07:25:54 10/15/20 23 10/16/2023 CBC (INCL UDES DIFF/ PLT) absolute neutrophils 7080 cells /uL 1500-7 800 normal Not Available [address], [address], 10/16/2023 07:25:54 10/15/20 23 10/16/2023 CBC (INCL UDES DIFF/ PLT) absolute lymphocytes 2280 cells /uL 850-39 00 normal Not Available [address], [address], 10/16/2023 07:25:54 10/15/20 23 10/16/2023 CBC (INCL UDES DIFF/ PLT) absolute monocytes 520 cells /uL 200-95 0 normal Not Available [address], [address], 10/16/2023 07:25:54 10/15/20 23 10/16/2023 CBC (INCL UDES DIFF/ PLT) absolute eosinophils 80 cells /uL 15-500 normal Not Available [address], [address], 10/16/2023 07:25:54 10/15/20 23 10/16/2023 CBC (INCL UDES DIFF/ PLT) absolute basophils 40 cells /uL 0-200 normal Not Available [address], [address], 10/16/2023 07:25:54 10/15/20 23 10/16/2023 CBC (INCL UDES DIFF/ PLT) neutrophils 70.8 % normal Not Available [address], [address], 10/16/2023 07:25:54 10/15/20 23 10/16/2023 CBC (INCL UDES DIFF/ PLT) lymphocytes 22.8 % normal Not Available [address], [address], 10/16/2023 07:25:54 10/15/20 23 10/16/2023 CBC (INCL UDES DIFF/ PLT) monocytes 5.2 % normal Not Available [address], [address], 10/16/2023 07:25:54 10/15/20 23 10/16/2023 CBC (INCL UDES DIFF/ PLT) eosinophils 0.8 % normal Not Available [address], [address], 10/16/2023 07:25:54 10/15/20 23 10/16/2023 CBC (INCL UDES DIFF/ PLT) basophils 0.4 % normal Not Available [address], [address], 10/16/2023 07:25:54 10/15/20 23 10/16/2023 HEPAT ITIS B SURFA CE ANTIG EN W/REF L CONFI RM hepatitis B surface antigen NON-RE ACTIVE non-re active normal For addit ional infor nuno arteaga, ruddy e refer to http: //formerly [facility] n.que stdia gnost ics.c om/fa q/FAQ 202 (This link is being provi ded for infor matio nal/ educa reggie l purpo ses only. ) Not Available [address], [address], 10/16/2023 08:21:32 10/15/20 23 10/16/2023 HEPAT ITIS C AB W/REF L TO HCV RNA, QN, PCR hepatitis C antibody NON-RE ACTIVE non-re active normal HCV antib nirmala was non-r eacti ve. There is no labor atory evide nce of HCV infec tion. In most cases , no furth er actio n is requi red. Howev er, if recen t HCV expos ure is suspe cted, a test for HCV RNA (test code 69365 ) is sugge sted. For addit ional infor matio n pleas e refer to http: //[facility] n.que stdia gnost ics.c om/fa q/FAQ 22v1 (This link is being provi ded for infor matio nal/ educa reggie l purpo ses only. ) Not Available [address], [place], [address], 10/16/2023 09:01:59 10/15/20 23 10/16/2023 RUBEL LA AB (IGG) , IMMUN E STATU S rubella Ab (IgG), immune status 5.17 index normal Index Inter preta tion ----- ----- ----- ---- <0.90 Not consi stent with immun ity 0.90- 0.99 Equiv ocal > or = 1.00 Consi stent with immun ity The prese nce of rubel la IgG antib nirmala sugge sts immun izati on or past or curre nt infec tion with rubel la virus . Not Available [facility] [place] [address] [address] [address] , [place], [address], 10/16/2023 14:54:57 10/15/20 23 10/16/2023 HIV 1/2 ANTIG EN/AN TIBOD Y,FOU RTH GENER ATION W/RFL HIV Ag/Ab, 4TH gen NON-RE ACTIVE non-re active normal HIV-1 antig en and HIV-1 /HIV- 2 antib odies were not detec tracy. There is no labor atory evide nce of HIV infec tion. PLEAS E NOTE: This infor matio n has been discl osed to you from recor ds whose confi denti ality may be prote cted by state law. If your state requi res such prote ction , then the state law prohi bits you from fallon rehman er discl osure of the infor matio n witho ut the speci fic writt en conse nt of the perso n to whom it perta ins, or as other torres permi tted by law. A gener al autho ridorothyt ion for the relea se of medic al or other infor matio n is NOT suffi cient for this purpo se. For addit ional infor matio n pleas e refer to http: //[facility] n.que stdia gnost ics.c om/fa q/FAQ 106 (This link is being provi ded for infor matio nal/ educa reggie l purpo ses only. ) The perfo rmanc e of this assay has not been clini heath valid ated in patie nts less than 2 years old. Not Available [facility] [address] [place], [address], 10/16/2023 09:02:00 10/15/20 23 10/31/2023 QNATA L(R) ADVAN YOGESH number of fetuses? 1 Not Available [facility] [place] [address] [place], [address], 10/31/2023 20:24:39 10/15/20 23 10/31/2023 QNATA L(R) ADVAN YOGESH advanced maternal age? NO Not Available [facility] [address] [place], [address], 10/31/2023 20:24:39 10/15/20 23 10/31/2023 QNATA L(R) ADVAN YOGESH abnormal jose? NO Not Available [facility] [address] [address] [place], [address], 10/31/2023 20:24:39 10/15/20 23 10/31/2023 QNATA L(R) ADVAN YOGESH abnormal US? NO Not Available [facility] [place] [address] [place], [address], 10/31/2023 20:24:39 10/15/20 23 10/31/2023 QNATA L(R) ADVAN YOGESH personal/fam history? NO Not Available [facility] [place] [address] [place], [address], 10/31/2023 20:24:39 10/15/20 23 10/31/2023 QNATA L(R) ADVAN YOGESH interpretati on SEE NOTE This speci men showe d an expec tracy repre senta tion of chrom osome 21, 18, and 13 mater ial. See Bucky mccabe below . Not Available [address], [address], 10/31/2023 20:24:39 10/15/20 23 10/31/2023 QNATA L(R) ADVAN YOGESH trisomy 21 (T21) NEGATI VE Not Available [address], [address], 10/31/2023 20:24:39 10/15/20 23 10/31/2023 QNATA L(R) ADVAN YOGESH trisomy 18 (T18) NEGATI VE Not Available [address], [address], 10/31/2023 20:24:39 10/15/20 23 10/31/2023 QNATA L(R) ADVAN YOGESH trisomy 13 (T13) NEGATI VE Not Available [address], [address], 10/31/2023 20:24:39 10/15/20 23 10/31/2023 QNATA L(R) ADVAN YOGESH Y chromosome NOT DETECT ED Not Available [address], [address], 10/31/2023 20:24:39 10/15/20 23 10/31/2023 QNATA L(R) ADVAN YOGESH Y chr. interpretati on SEE NOTE Consi stent with a femal e fetus . Not Available [address], [address], 10/31/2023 20:24:39 10/15/20 23 10/31/2023 QNATA L(R) ADVAN YOGESH sex chromosome NO ANEUPL OIDY Not Available [address], [address], 10/31/2023 20:24:39 10/15/20 23 10/31/2023 QNATA L(R) ADVAN YOGESH sex chromosome interp SEE NOTE No appar ent abnor malit y was detec tracy. See Limi tatio ns below . Not Available [address], [address], 10/31/2023 20:24:39 10/15/20 23 10/31/2023 QNATA L(R) ADVAN YOGESH microdeletio n NOT DETECT ED Not Available [address], [address], 10/31/2023 20:24:39 10/15/20 23 10/31/2023 QNATA L(R) ADVAN YOGESH microdeletio n interp SEE NOTE No appar ent abnor malit y was detec tracy. See Limi tatio ns below . Not Available [address], [address], 10/31/2023 20:24:39 10/15/20 23 10/31/2023 QNATA L(R) ADVAN YOGESH gestational age(in weeks) 14 Not Available [address], [address], 10/31/2023 20:24:39 10/15/20 23 10/31/2023 QNATA L(R) ADVAN YOGESH gestational age (in days) 6 Not Available [address], [address], 10/31/2023 20:24:39 10/15/20 23 10/31/2023 QNATA L(R) ADVAN YOGESH fraction 7.20% Not Available [address], [address], 10/31/2023 20:24:39 10/15/20 23 10/31/2023 QNATA L(R) ADVAN YOGESH laboratory comments SEE NOTE Labor atory testi ng super vised and resul ts monit ored by Tara Newell ch-Barrios wks, Ph.D. , [facility], [facility]. Not Available [facility] [address] [address], [place], [address], 10/31/2023 20:24:39 10/15/20 23 10/31/2023 QNATA L(R) ADVAN YOGESH limitations SEE NOTE QNata l(R) Advan yogesh is a cell- free DNA test that scree ns for incre ased risk of certa in chrom osoma l abnor malit ies that may cause defec ts, inclu ding Triso my 21 (Down syndr ome), Triso my 18, Triso my 13, and certa in sex chrom osome abnor malit ies (i.e. , 45,X, 47,XX Y, 47,XX X, and 47,XY Y), as well as sex. In addit ion, if selec tracy as an optio n, QNata l(R) Advan yogesh can scree n for certa in micro delet ions (i.e. , 22q, 5p, 1p36, 15q, 11q, 8q, and 4p) that may cause defec ts. This test does not asses s the risk of abnor malit ies such as neura l tube defec ts or ventr al wall defec ts and shoul d not be consi dered in isola tion from other clini cynthia findi ngs and labor atory test resul ts. QNata l(R) Advan yogesh has been valid ated in [place] pregn ancie s for the triso mies and sex chrom osome abnor malit ies liste d above , as well as for micro delet ions, and for the deter minat ion of sex. Sex chrom osome aneup loidy yan sis is only perfo rmed in [place] pregn ancie s. The test has also been valid ated in twin pregn ancie s for the triso mies liste d above and for micro delet ions, but not for the sex chrom osome abnor malit ies due to limit ed data. The test has not been valid ated in highe r order pregn ancie s (more than two) becau se limit ed data is avail able. Micro delet ion scree dann is limit ed to the speci fied micro delet ion regio ns (see Meth odolo gy ). The Y chrom osome is yan zed for the deter minat ion of sex. The sensi tivit y and speci ficit y of sex deter minat ion yan sis may be less than that of the Triso my 21, 18, and 13 yan sis and this deter minat ion can be confo unded by vanis justin twin syndr ome in pregn ancie s that were origi tani multi ple gesta tion pregn ancie s. It shoul d be noted that QNata l(R) Advan yogesh is a quant itati ve yan sis of mater nal and place ntal cfDNA . As a resul t, the accur acy of the scree dann test resul ts may be affec tracy by the prese nce of chrom osome abnor malit ies or micro delet ions that are mater nal or confi rigoberto place ntal in origi n. False posit breanna findi ngs invol ving the exami rigoberto chrom osome s and micro delet ion regio ns may be due to mater nal, place ntal, or mosai cism, by vanis justin twin syndr ome, or other unexp torrey d cause s. Not Available [facility] [address] [place], [address], 10/31/2023 20:24:39 10/15/20 23 10/31/2023 QNATA L(R) ADVAN YOGESH specificatio ns SEE NOTE Sensi tivit y Speci ficit y T21 >99.9 % >99.9 % T18 >99.9 % >99.9 % T13 >99.9 % >99.9 % Accur acy Y >99.9 % Perfo rmanc e of the QNata l Advan yogesh labor atory -deve loped test (LDT) has been deter mined based on inter nal yan tical asses sment . Not Available [facility] [address] [place], [address], 10/31/2023 20:24:39 10/15/20 23 10/31/2023 QNATA L(R) ADVAN YOGESH methodology SEE NOTE Circu latin g cell- free (cf) DNA was isola tracy from plasm a follo wed by detec tion on a massi vely paral lel seque ncing platf orm. Bioin forma tic yan sis was perfo rmed to deter mine the repre senta tion of chrom osome s 21, 18, 13, X and Y in circu latin g cell- free DNA. The repre senta tion of seque nces from the criti cynthia regio ns invol benigno in 1p36 micro delet ion syndr ome (1p36 ), Dougie Biggs hhorn syndr ome (4p), Cri-d u-chapis t syndr ome (5p), Cody r-Gie jocelyn syndr ome (8p), Matt sen syndr ome (11q) , Prade r Willi syndr ome/A ngelm an syndr ome (15q) , and DiGeo rge syndr ome (22q) is evalu ated for the detec tion of micro delet ions if reque sted. This test was devel oped, and its perfo rmanc e valery cteri stics have been deter mined by [facility] . It has not been clear ed or appro benigno by the U.S. Food and Drug Admin istra tion. Perfo rmanc e valery cteri stics refer to the yan tical perfo rmanc e of the test. This test is perfo rmed pursu ant to a licen se agree ment with [facility] es. This test was devel oped and its yan tical perfo rmanc e valery cteri stics have been deter mined by [facility]. It has not been clear ed or appro benigno by FDA. This assay has been valid ated pursu ant to the CLIA regul ation s and is used for clini cynthia purpo ses. Not Available [facility] [address] [address] , [place], [address], 10/31/2023 20:24:39 10/15/20 23 10/17/2023 RPR (DX) W/REF L TITER AND T. PALLI DUM AB, IA RPR (DX) w/refl titer and confirmatory testing NON-RE ACTIVE non-re active normal No labor atory evide nce of syphi lis. If recen t expos ure is suspe cted, submi t a new sampl e in 2-4 weeks . Not Available [address] [place], [address], 10/17/2023 13:24:33 10/15/20 23 10/16/2023 ANTIB NIRMALA SCREE N, RBC W/REF L ID, TITER AND AG antibody screen, RBC w/refl id, titer and Ag NO ANTIBO DIES DETECT ED normal Refer ence range No antib odies detec tracy This assay is a scree dann test for the detec tion of red blood cell antib odies . The test is not to be used for pretr ansfu rin scree dann or for the medic al manag ement of an alloi mmuni zed pregn elizabeth. Not Available [address] [address] [place], [address], 10/16/2023 17:25:00 10/15/20 23 10/16/2023 ABO GROUP AND RH TYPE ABO group O Not Available [address] [place], [address], 10/16/2023 17:25:02 10/15/20 23 10/16/2023 ABO GROUP AND RH TYPE Rh type RH(D) NEGATI VE For addit ional infor ruddy brian e refer to http: //saba arteaga.Que stDia gnost ics.c om/fa q/FAQ 111 (This link is being provi ded for infor nuno luciano/ educa reggie l purpo ses only. ) Not Available [facility] [address] [place], [address], 10/16/2023 17:25:02 10/15/20 23 10/17/2023 DRUG MONIT OR, PANEL 1, SCREE N, URINE amphetamines NEGATI VE NG/mL <500 See Note A See Note A Not Available [address] [address] [address], [place], [address], 10/17/2023 10:56:54 10/15/20 23 10/17/2023 DRUG MONIT OR, PANEL 1, SCREE N, URINE barbiturates NEGATI VE NG/mL <300 See Note A See Note A Not Available [address] [address] [address], [place], [address], 10/17/2023 10:56:54 10/15/20 23 10/17/2023 DRUG MONIT OR, PANEL 1, SCREE N, URINE benzodiazepi mattie NEGATI VE NG/mL <100 See Note A See Note A Not Available [facility] [address] [address] [address], [place], [address], 10/17/2023 10:56:54 10/15/20 23 10/17/2023 DRUG MONIT OR, PANEL 1, SCREE N, URINE cocaine metabolite NEGATI VE NG/mL <150 See Note A See Note A Not Available [facility] [address] [address] [address], [place], [address], 10/17/2023 10:56:54 10/15/20 23 10/17/2023 DRUG MONIT OR, PANEL 1, SCREE N, URINE marijuana metabolite NEGATI VE NG/mL <20 See Note A See Note A Not Available [facility] [address] [address] [address], [place], [address], 10/17/2023 10:56:54 10/15/20 23 10/17/2023 DRUG MONIT OR, PANEL 1, SCREE N, URINE methadone metabolite NEGATI VE NG/mL <100 See Note A See Note A Not Available [address] [address] [address], [place], [address], 10/17/2023 10:56:54 10/15/20 23 10/17/2023 DRUG MONIT OR, PANEL 1, SCREE N, URINE opiates NEGATI VE NG/mL <100 See Note A See Note A Not Available [address] [address] [address], [place], [address], 10/17/2023 10:56:54 10/15/20 23 10/17/2023 DRUG MONIT OR, PANEL 1, SCREE N, URINE oxycodone NEGATI VE NG/mL <100 See Note A See Note A Not Available [address], [place], [address], 10/17/2023 10:56:54 10/15/20 23 10/17/2023 DRUG MONIT OR, PANEL 1, SCREE N, URINE phencyclidin e NEGATI VE NG/mL <25 See Note A See Note A Not Available [address], [place], [address], 10/17/2023 10:56:54 10/15/20 23 10/17/2023 DRUG MONIT OR, PANEL 1, SCREE N, URINE creatinine 328.5 mg/dL > or = 20.0 Not Available [address] , [place], [address], 10/17/2023 10:56:54 10/15/20 23 10/17/2023 DRUG MONIT OR, PANEL 1, SCREE N, URINE pH 6.3 4.5-9. 0 Not Available [address] , [place], [address], 10/17/2023 10:56:54 10/15/20 23 10/17/2023 DRUG MONIT OR, PANEL 1, SCREE N, URINE oxidant NEGATI VE mcg/m L <200 Not Available [address], [place], [address], 10/17/2023 10:56:54 10/15/20 23 10/17/2023 DRUG MONIT ORING TEMPL ATE notes and comments This drug testi ng is for medic al treat ment only. Yan sis was perfo rmed as non-f orens ic testi ng and these resul ts shoul d be used only by healt hcare provi ders to rende r diagn osis or treat ment, or to monit or progr ess of medic al condi tions . Note A: The resul ts are presu mptiv e; based only on rosae dann ortiz ds, and they have not been confi rmed by a defin itive metho d. [facility]alt [facility] Pro[facility] d[facility] needi ng Inter preta tion sathya tance , pleas e conta ct us at 1.877 .40.R XTOX (1.87 [phone] ) M-F, 8am to 10pm EST Not Available [address] [address] [place], [address], 10/17/2023 10:56:57 10/15/20 23 10/16/2023 CULTU RE, URINE , ROUTI NE culture SEE NOTE Not Available [facility] [address] [place], [address], 10/16/2023 07:26:00 10/15/20 23 10/16/2023 CULTU RE, URINE , ROUTI NE culture, urine, routine SEE NOTE CULTU RE, URINE , ROUTI NE Micro Numbe r: [id number] Test Statu s: Final Speci men Sourc e: Urine , clean catch Speci men Quali ty: Adequ ate Resul t: Mixed genit al yury isola tracy. These super ficia l bacte salvador are not indic ative of a urina ry tract infec tion. No furth er organ ism ident ifica tion is warra nted on this speci men. If clini heath indic ated, recol lect clean -catc h, mid-s tream urine and trans clara immed iatel y to Urine Cultu re Trans port Tube. Not Available [facility] [address] [place], [address], 10/17/2023 00:40:18 10/15/20 23 10/17/2023 IMAGE -GUID ED PAP W/AGE BASED SCR,W /CT/N G/TRI CH comment Not Available [address], [address], 10/17/2023 05:16:18 10/15/20 23 10/17/2023 IMAGE -GUID ED PAP W/AGE BASED SCR,W /CT/N G/TRI CH report status: Not Available [address] [place], [address], 10/17/2023 05:16:18 10/15/20 23 10/17/2023 IMAGE -GUID ED PAP W/AGE BASED SCR,W /CT/N G/TRI CH clinical information: Not Available [address] [address] [place], [address], 10/17/2023 05:16:18 10/15/20 23 10/17/2023 IMAGE -GUID ED PAP W/AGE BASED SCR,W /CT/N G/TRI CH LMP: Not Available [address] [address] [place], [address], 10/17/2023 05:16:18 10/15/20 23 10/17/2023 IMAGE -GUID ED PAP W/AGE BASED SCR,W /CT/N G/TRI CH prev. Pap: Not Available [address] [address] [place], [address], 10/17/2023 05:16:18 10/15/20 23 10/17/2023 IMAGE -GUID ED PAP W/AGE BASED SCR,W /CT/N G/TRI CH prev. BX: Not Available [address], [address], 10/17/2023 05:16:18 10/15/20 23 10/17/2023 IMAGE -GUID ED PAP W/AGE BASED SCR,W /CT/N G/TRI CH source: Not Available [address] [address] [place], [address], 10/17/2023 05:16:18 10/15/20 23 10/17/2023 IMAGE -GUID ED PAP W/AGE BASED SCR,W /CT/N G/TRI CH statement of adequacy: Not Available [address] [address] [place], [address], 10/17/2023 05:16:18 10/15/20 23 10/17/2023 IMAGE -GUID ED PAP W/AGE BASED SCR,W /CT/N G/TRI CH general categorizati on: Not Available [address] [address] [place], [address], 10/17/2023 05:16:18 10/15/20 23 10/17/2023 IMAGE -GUID ED PAP W/AGE BASED SCR,W /CT/N G/TRI CH interpretati on/result: Not Available [address] , [place], [address], 10/17/2023 05:16:18 10/15/20 23 10/17/2023 IMAGE -GUID ED PAP W/AGE BASED SCR,W /CT/N G/TRI CH infection: Not Available [address] [address] [place], [address], 10/17/2023 05:16:18 10/15/20 23 10/17/2023 IMAGE -GUID ED PAP W/AGE BASED SCR,W /CT/N G/TRI CH comment: Not Available [address] [address] [place], [address], 10/17/2023 05:16:18 10/15/20 23 10/17/2023 IMAGE -GUID ED PAP W/AGE BASED SCR,W /CT/N G/TRI CH cytotechnolo gist: Not Available [address] [address] [place], [address], 10/17/2023 05:16:18 10/15/20 23 10/17/2023 IMAGE -GUID ED PAP W/AGE BASED SCR,W /CT/N G/TRI CH review cytotechnolo gist: Not Available [address] [address] [place], [address], 10/17/2023 05:16:18 10/15/20 23 10/17/2023 IMAGE -GUID ED PAP W/AGE BASED SCR,W /CT/N G/TRI CH pathologist: Not Available [address] [address] [place], [address], 10/17/2023 05:16:18 10/15/20 23 10/17/2023 IMAGE -GUID ED PAP W/AGE BASED SCR,W /CT/N G/TRI CH chlamydia trachomatis RNA, tma, urogenital NOT DETECT ED not detect ed normal Not Available [address] [address] [place], [address], 10/17/2023 05:16:18 10/15/20 23 10/17/2023 IMAGE -GUID ED PAP W/AGE BASED SCR,W /CT/N G/TRI CH neisseria gonorrhoeae RNA, tma, urogenital NOT DETECT ED not detect ed normal Not Available [facility] [address] [address] [place], [address], 10/17/2023 05:16:18 10/15/20 23 10/17/2023 IMAGE -GUID ED PAP W/AGE BASED SCR,W /CT/N G/TRI CH comment The yan tical perfo rmanc e valery cteri stics of this assay , when used to test SureP ath(T M) speci mens have been deter mined by [facility]. The modif icati ons have not been clear ed or appro benigno by the FDA. This assay has been valid ated pursu ant to the CLIA regul ation s and is used for clini cynthia purpo ses. For addit ional infor ruddy brian e refer to https ://ed ucati on.qu estdi agnos tics. com/f aq/FA Q154 (This link is being provi ded for infor matio n/ educa reggie l purpo ses only. ) Not Available [facility] [address] [address], [place], [address], 10/17/2023 05:16:18 10/15/20 23 10/17/2023 IMAGE -GUID ED PAP W/AGE BASED SCR,W /CT/N G/TRI CH trichomonas vaginalis, ql tma, Pap vial NOT DETECT ED not detect ed normal The yan tical perfo rmanc e valery cteri stics of this assay have been deter mined by [facility]. The modif icati ons have not been clear ed or appro benigno by the FDA. This assay has been valid ated pursu ant to the CLIA regul ation s and is used for clini cynthia purpo ses. For addit ional infor ruddy brian e refer to http: //[facility] charlene ahnque stdia gnost ics.c om/ faq/T marcos monas tma (This link is being provi ded for infor matio n/ educa reggie l purpo ses only. ) Not Available [facility] [address] [address] [address], [place], [address], 10/17/2023 05:16:18 10/15/20 23 10/18/2023 IMAGE -GUID ED PAP W/AGE BASED SCR,W /CT/N G/TRI CH comment This order for age-b ased cervi cynthia cance r and STI scree dann follo ws ACOG guide lines (PB 168, 140, FAQ07 1). See indiv idual assay s for perfo rming site locat ion. Not Available [facility] [address] [address] [place], [address], 10/18/2023 17:12:05 10/15/20 23 10/18/2023 IMAGE -GUID ED PAP W/AGE BASED SCR,W /CT/N G/TRI CH clinical information: normal Pregn ant Not Available [address] [address] [place], [address], 10/18/2023 17:12:05 10/15/20 23 10/18/2023 IMAGE -GUID ED PAP W/AGE BASED SCR,W /CT/N G/TRI CH LMP: normal NONE GIVEN Not Available [address] [place], [address], 10/18/2023 17:12:05 10/15/20 23 10/18/2023 IMAGE -GUID ED PAP W/AGE BASED SCR,W /CT/N G/TRI CH prev. Pap: normal NONE GIVEN Not Available [address], [address], 10/18/2023 17:12:05 10/15/20 23 10/18/2023 IMAGE -GUID ED PAP W/AGE BASED SCR,W /CT/N G/TRI CH prev. BX: normal NONE GIVEN Not Available [address], [address], 10/18/2023 17:12:05 10/15/20 23 10/18/2023 IMAGE -GUID ED PAP W/AGE BASED SCR,W /CT/N G/TRI CH source: normal Cervi x, Endoc ervix Not Available [address], [address], 10/18/2023 17:12:05 10/15/20 23 10/18/2023 IMAGE -GUID ED PAP W/AGE BASED SCR,W /CT/N G/TRI CH statement of adequacy: normal Satis facto ry for evalu ation . Endoc ervic al/tr ansfo rmati on zone compo nent prese nt. Age and/o r menst rual statu s not provi ded Not Available [address] [address] [place], [address], 10/18/2023 17:12:05 10/15/20 23 10/18/2023 IMAGE -GUID ED PAP W/AGE BASED SCR,W /CT/N G/TRI CH general categorizati on: abnormal Cytol ogy Resul ts: Epith elial Cell Abnor malit y Not Available [address] [address] [place], [address], 10/18/2023 17:12:05 10/15/20 23 10/18/2023 IMAGE -GUID ED PAP W/AGE BASED SCR,W /CT/N G/TRI CH interpretati on/result: abnormal Low Grade Squam ous Intra epith elial Lesio n (LSIL ) Not Available [address] [address] [place], [address], 10/18/2023 17:12:05 10/15/20 23 10/18/2023 IMAGE -GUID ED PAP W/AGE BASED SCR,W /CT/N G/TRI CH comment: normal This Pap test has been evalu ated with sergiou pringle techn ology . Not Available [address], [place], [address], 10/18/2023 17:12:05 10/15/20 23 10/18/2023 IMAGE -GUID ED PAP W/AGE BASED SCR,W /CT/N G/TRI CH cytotechnolo gist: normal GAZ, CT( CP) CT scree dann locat ion: [facility] [address], [address], [facility] [place] [address] Not Available [address] [address] [place], [address], 10/18/2023 17:12:05 10/15/20 23 10/18/2023 IMAGE -GUID ED PAP W/AGE BASED SCR,W /CT/N G/TRI CH pathologist: normal Eladia raymundo MD, Board Certi fied in [facility] (elec troni c signa ture) Not Available [address] [address] [place], [address], 10/18/2023 17:12:05 10/15/20 23 10/18/2023 IMAGE -GUID ED PAP W/AGE BASED SCR,W /CT/N G/TRI CH comment EXPLA NATNILS Y NOTE: The Pap is a scree dann test for cervi cynthia cance r. It is not a diagn ostic test and is subje ct to false negat breanna and false posit breanna resul ts. It is most relia ble when a satis facto ry sampl e, regul zack obtai rigoberto, is submi tted with relev ant clini cynthia findi ngs and histo ry, and when the Pap resul t is evalu ated along with histo hardik and curre nt clini cynthia infor matio n. Not Available [address] [address] [place], [address], 10/18/2023 17:12:05 10/15/20 23 10/18/2023 IMAGE -GUID ED PAP W/AGE BASED SCR,W /CT/N G/TRI CH chlamydia trachomatis RNA, tma, urogenital NOT DETECT ED not detect ed normal Not Available [address] [place], [address], 10/18/2023 17:12:05 10/15/20 23 10/18/2023 IMAGE -GUID ED PAP W/AGE BASED SCR,W /CT/N G/TRI CH neisseria gonorrhoeae RNA, tma, urogenital NOT DETECT ED not detect ed normal Not Available [facility] [address] [address] [place], [address], 10/18/2023 17:12:05 10/15/20 23 10/18/2023 IMAGE -GUID ED PAP W/AGE BASED SCR,W /CT/N G/TRI CH comment The yan tical perfo rmanc e valery cteri stics of this assay , when used to test SureP ath(T M) speci mens have been deter mined by [facility]. The modif icati ons have not been clear ed or appro benigno by the FDA. This assay has been valid ated pursu ant to the CLIA regul ation s and is used for clini cynthia purpo ses. For addit ional infor ruddy brian e refer to https ://ed ucati on.qu estdi Hologics. com/f aq/FA Q154 (This link is being provi ded for infor nuno n/ educa reggie l purpo ses only. ) Not Available [facility] [address] [place], [address], 10/18/2023 17:12:05 10/15/20 23 10/18/2023 IMAGE -GUID ED PAP W/AGE BASED SCR,W /CT/N G/TRI CH trichomonas vaginalis, ql tma, Pap vial NOT DETECT ED not detect ed normal The yan tical perfo rmanc e valery cteri stics of this assay have been deter mined by [facility]. The modif icati ons have not been clear ed or appro benigno by the FDA. This assay has been valid ated pursu ant to the CLIA regul ation s and is used for clini cynthia purpo ses. For addit ional infor ruddy brian e refer to http: //saba velasquez stdia gnost ics.c om/ faq/T marcos dyson tma (This link is being provi ded for infor nuno n/ educa reggie l purpo ses only. ) Not Available [facility] [address] [address] , [place], [address], 10/18/2023 17:12:05 10/15/20 23 10/15/2023 sher wet prep Whiff negati ve Not Available [facility] ([facility]) [address] [place] [address], [address], 10/15/2023 10:30:27 10/15/20 23 10/15/2023 sher wet prep Epi 12-15 Not Available [facility] ([facility]) [address] [place], [address], 10/15/2023 10:30:27 10/15/20 23 10/15/2023 sher wet prep WBC 4-6 Not Available [facility] ([facility]) [address] [place], [address], 10/15/2023 10:30:27 10/15/20 23 10/15/2023 sher wet prep RBC negati ve Not Available [facility] ([facility]) [address] [place], [address], 10/15/2023 10:30:27 10/15/20 23 10/15/2023 sher wet prep Bacteria trace of small rods Not Available [facility] ([facility]) [address] [place], [address], 10/15/2023 10:30:27 10/15/20 23 10/15/2023 sher wet prep Fungus none seen Not Available [facility] ([facility]) [address] [place], [address], 10/15/2023 10:30:27 10/15/20 23 10/15/2023 sher wet prep Clue Cells positi ve Not Available [facility] ([facility]) [address] [place], [address], 10/15/2023 10:30:27 10/15/20 23 10/15/2023 sher wet prep Other negati ve Not Available [facility] ([facility]) [address] [place], [address], 10/15/2023 10:30:27 Result Notes None recorded. Problems Name Problem SNOMED Code Status Onset Date Resolution Date Notes Provider Name and Address Organization Details Recorded Time 40656140 Active 023 ZITA jaimes [facility], [place] 3 12:42:06 Migraine 94171887 Active 023 ZITA jaimes [facility], [place] 3 12:41:46 Bleeding from nose 265724812 Active 023 ZITA VAZQUEZ [facility], [place] 3 12:41:59 55771901 Active 023 ZITA VAZQUEZ [facility], [place]if[facility] 3 12:42:06 Problem Notes None recorded. Procedures Surgical History Date Name Laterality Status Provider Name and Address Organization Details Recorded Time 03/28/2022 Date of Last Pap Smear completed ZITA VAZQUEZ [facility] [place] 09/11/2023 12:42:29 Imaging Results None recorded. Procedure Notes None recorded. Medical Equipment None Reported. Allergies Allergen ID Allergen Name Allergen Category Reaction Reaction Severity Criticality Documentation Date Start Date Code Code System Note Provider Name and Address Organization Details Recorded Time 37034 Product containin g penicilli n (product) medicatio n anaphylax is Not available high 09/11/2023 96085 8001 SNOMED ZITA VAZQUEZ [facility], [place]if[facility]anni[facility] 3 12:41:12 Medications Name Sig Start Date Stop Date Status Note LastModified by Organization Details LastModified Time azithromyci n 250 mg tablet TAKE 1 TABLET BY MOUTH ONCE DAILY START ON DAY 2 OF THERAPY 09/11 completed Not Available Not Available Not Available ofloxacin 0.3 % eye drops INSTILL 10 DROPS INTO AFFECTED EAR(S) DAILY 09/11 completed Not Available Not Available Not Available metronidazo le 500 mg tablet Take 1 tablet twice a day by oral route. 11/14 completed Not Available Not Available Not Available ondansetron 4 mg disintegrat ing tablet 1 tab po 30 minutes prior to meals TID prn nausea 2022 active Not Available Not Available Not Avai lable Vitamin 27 mg iron-0.8 mg tablet Take 1 tablet by oral route. 2022 active Not Available Not Available Not Avai lable active Not Available Not Avai lable Not Available Tylenol 325 mg capsule Take by oral route. active Not Available Not Available No t Available Vitals Date Recorded Body height Body mass index (BMI) Body weight Body temperature Oxygen saturation Oxygen saturation in Arterial blood by Pulse oximetry Heart rate Systolic And Diastolic Provider Name and Address Organization Details Last Updated DateTime 4 167.64 cm 30.5 kg/m2 91227.9 5793 g 97.5 [degF] 98 % 98 % 108 /min 120/76 mm[Hg] [facility] 4 14:41:39 Date Recorded Body weight Body mass index (BMI) Body height Body temperature Oxygen saturation Oxygen saturation in Arterial blood by Pulse oximetry Heart rate Systolic And Diastolic Provider Name and Address Organization Details Last Updated DateTime 3 28771.8 8163 g 32.1 kg/m2 167.64 cm 97.2 [degF] 97 % 97 % 88 /min 115/78 mm[Hg] ZITA VAZQUEZ [facility] 3 12:37:22 Date Recorded Body weight Provider Name an Address Organization Details Last Updated DateTime 10/15/2023 43489.5503 g Francia Jiménez MD [address] [place] [address], [phone], [facility] 10/15/2023 11:56:34 Date Recorded Body height Body mass index (BMI) Body temperature Oxygen saturation Oxygen saturation in Arterial blood by Pulse oximetry Heart rate Systolic And Diastolic Provider Name and Address Organization Details Last Updated DateTime 3 167.64 cm 30.7 kg/m2 97.8 [degF] 97 % 97 % 80 /min 118/78 mm[Hg] [facility] 3 11:32:27 Social History None recorded. Functional Status Question Answer Note LastModified by Organizat ion Details LastModified Time Do you use any illicit or recreational drugs? No [email or web address] Information not available 10/15/2023 What is your level of alcohol consumption? None [email or web address] Information not available 10/15/2023 Mental Status None recorded. Family History Relationship Description Onset Age of this Age Resolved Age Notes LastModified by Organization Details LastModified Time Father No current problems or disability [email or web address] Not available 12:42:55 Mother No current problems or disability [email or web address] Not available 12:42:55 Medical History Condition Response Coronary Artery Disease N Other N Gout N Kidney Stones N Blood Diseases N Hyperthyroidism N Breast Cancer N Blood Transfusion N Depression N Hypothyroidism N Lung Disease N COPD N Developmental or Behavioral Disorders N Defects or Inherited Disease N Breast Problem N Difficulty Swallowing N Anesthesia Complications N Anxiety Disorder N Meniere's disease N Muscle, Joint, or Bone Problems N Vision or Eye Problems N Arthritis N Infertility N Polyps N Cancer N Stroke N Varicosities N Endometriosis N Bladder or Kidney Problems N High Cholesterol N Liver Disease N Fibromyalgia N Headaches Y Kidney Disease N Allergies/Hayfever N Heart Problems N Ear or Hearing Problems N Hospitalizations N Thyroid Problems N GI Problems N ADD/ADHD N Skin Problems N Eating Disorder N Anemia N Constipation N Mental Illness N Ovarian Cancer N Diabetes N Bedwetting N Seizures/Epilepsy N Tuberculosis N Eczema N Diverticulitis N Abuse/Domestic Violence N Asthma N Reflux/GERD N Hepatitis N Heart Disease N Pulmonary Embolism N Pre-Eclampsia N Hypertension N Chronic Ear Infections N Osteoporosis N Chicken Pox N Autism Spectrum Disorder (ASD) N Thrombophilias N Gynecological History Statement/Question Response Abnormal Pap N Date of Last Pap Smear 03/28/2022 Obstetrics History GPAL:G 1 P 0 0 0 0 Type Value Spontaneous 0 Living 0 Total 1 Immunizations Vaccine Type Date Status Note Provider Nam e and Address Organization Details Recorded Time Hib, unspecified formulation 0 completed ZITA jaimes [facility] 09/11/2023 12:40:56 Hib, unspecified formulation 1 completed ZITA jaimes [facility] 09/11/2023 12:40:56 Hib, unspecified formulation 0 completed ZITA jaimes [facility] 09/11/2023 12:40:56 Hib, unspecified formulation 0 completed ZITA jaimes [facility] 09/11/2023 12:40:56 [facility]23 12:40:56 MMR 5 completed ZITA VAZQUEZ [facility] 09/11/2023 12:40:56 COVID-19, mRNA, LNP-S, PF, 30 mcg/0.3 mL dose, agnieszka-sucrose 2 [facility] 09/11/2023 12:40:56 COVID-19, mRNA, LNP-S, PF, 30 mcg/0.3 mL dose, agnieszka-sucrose 2 completed [facility]ERT [facility] 09/11/2023 12:40:56 pneumococcal conjugate PCV 7 2 completed ZITA VAZQUEZ [facility] 09/11/2023 12:40:56 pneumococcal conjugate PCV 7 1 completed ZITA MILLERH VAZQUEZ [facility] 09/11/2023 12:40:56 Tdap 4 completed ZITA MILLERH VAZQUEZ [facility] 09/11/2023 12:40:56 varicella 1 completed ZITA EKON VAZQUEZ [facility] 09/11/2023 12:40:56 Hep B, adolescent or pediatric 0 completed ZITA MILLERH VAZQUEZ [facility] 09/11/2023 12:40:56 Hep B, adolescent or pediatric 0 completed ZITA KEON VAZQUEZ [facility] 09/11/2023 12:40:56 Hep B, adolescent or pediatric 0 completed ZITA MILLERH VAZQUEZ [facility] 09/11/2023 12:40:56 DTaP 0 completed ZITA jaimes, [facility] 09/11/2023 12:40:56 DTaP 1 completed ZITA VAZQUEZ null, [facility] 09/11/2023 12:40:56 DTaP 0 completed ZITA VAZQUEZ null, [facility] 09/11/2023 12:40:56 DTaP 5 completed ZITA jaimes, [facility] 09/11/2023 12:40:56 DTaP 0 completed ZITA jaimes, [facility] 09/11/2023 12:40:56 Influenza, split virus, quadrivalent, PF 2 completed ZITA jaimes, [facility] 09/11/2023 12:40:56 Past Encounters Encounter ID Performer Location Encounter Start Date Encounter Closed Date Diagnosis/Indication Diagnosis SNOMED-CT Code Diagnosis ICD10 Code Diagnosis IMO Codes Diagnosis Note [id number] Francia Jiménez MD [facility] ([facility]) [address] [place] [phone] 09/11/2023 11:49:09 09/11/2023 14:31:20 [id number] Z33.1 [id number] Francia Jiménez MD [facility] ([facility]) [address] [place] [phone] 09/26/2023 10:00:36 09/26/2023 14:03:31 [id number] Francia Jiménez MD [facility] ([facility]) [address] [place] [address] [phone] 10/15/2023 10:59:06 10/15/2023 13:36:30 Gestation period, 14 weeks 09299781 Z3A.14 Normal pre gnancy in primigravida 9133593043 18314 Z34.02 Nausea and vomiting 1693 1999 R11.2 [id number] Francia Jiménez MD [facility] ([facility]) [address] [place] [phone] 11/14/2023 14:34:28 11/14/2023 16:21:29 Gestation period, 19 weeks 45369055 Z3A.19 Normal pre gnancy in primigravida 3982757653 84436 Z34.02 Low grade squamous intraepithelial lesion on cervical Papanicolaou smear 3757618334 9105 R87.612 I discussed the dx in detail. I recommende d pt make a f/u appt for colposcopy . I discussed the procedure in detail. Blood grou p O Rh(D) negative 725358028 Z67.41 pt will need rhogam at 28 weeks. Noncomplia nce with treatment [id number] Z91.199 pt did not f/u with her u/s that was recommende d after discovery of vanishing twin. She also did not f/u for colposcopy consult as recommende d. She cancelled her appointmen t today but kept her 20wk isabela u/s appointmen t today - she was deferred here for her office visit instead of having her u/s. She will reschedule her u/s. 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 on 08/28/2023 pt was measuring 8 weeks per [facility]. Health Concerns Section Related Observation LastModified by Organization Detai ls LastModified Time None Recorded Concern Status LastModified by Organization Details LastModified Time None Recorded Advance Directives Directive None Recorded Payers Insurance Date Sequence Insurance Name Policy Number Policy Hilliard Covered Member ID Hilliard Member ID Guarantor Name 12/10/2023 [place] Celia Nelson [id number] Celia Nelson 12/04/2023 1 [facility] (MEDICAID HMO) Celia Nelson [id number] Celia Nelson 11/01/2023 1 *SELF PAY* Ryan Nelson 11/24/2023 [employer] - [facility] (MEDICAID HMO) Celia Nelson [id number] Celia Nelson 11/16/2023 [place] [facility] ([facility] Celia Nelson [id number] Celia Nelson Notes Date Note Type Note Provider Name and Address Organization Details Recorded Time 09/11/2023 text/html ROS as noted in the HPI first positive test before Halloweendogs and cats kept coming up to her - that was the reason why she testedshe has no idea when her period was(father is with her) Francia Jiménez MD [address] [place] [address], [phone], [facility] 09/11/2023 15:39:31 10/15/2023 text/html jr ob routineRep orted by PatientHPIFor associated symptoms, patient reportscramping,nausea ,emesis,headache, anddizzinessbut reportsno abdominal pain,no contractions,no dysuria,no fever,no constipation, andno diarrhea/loose stool.ROS as noted in the HPI Francia Jiménez MD [address] [place] [address], [phone], [facility] 10/28/2023 12:20:30 11/14/2023 text/html jr ob routineRep orted by PatientHPIFor associated symptoms, patient reportsemesisbut reportsno abdominal pain,no cramping,no contractions,no bleeding,no dysuria,no frequency,no nausea,no constipation, andno headache.ROS as noted in the HPI not really feeling movement yet, maybe some flutters Francia Jiménez MD [address] [place] [address], [phone], [facility] 11/17/2023 12:44:56 OBGyn Episode Ob Episode Information Episode Created Date Number of Fetuses Patient Bloodtype Patient rh Status Prepregnancy Weight lbs Domestic Partner Domestic Partner Phone Father Name Clinical Statistical Programmer Status 09/11/20 23 1 O Negative OPEN Fetus Data First Name Last Name Admitted to NICU Weight (g) Sex Living Outcome Pediatric Complications Fetus ID Race Codes Race Delivery Type [id number] Marvin Calculation Initial Marvin Date Initial Exam Date Initial Exam Provider Initial Ultrasound Date Last Menstrual Period Date Ultra Sound Weeks Gestation 04/09/2024 09/11/2023 09/26/2023 12 Eighteen To Twenty Week Marvin Update Ultra Sound Date Fundal Height At Umbil Quickening Date Ultra Sound Latest Weeks Gestation Final Marvin Confirmed By Final Marvin Confirmed Date Final Marvin Date Ultra Sound Latest Days Gestation 0 [email or web address] 10/15/2023 04/09/20 24 0 Pre-peng Flowsheet Flowsheet Date 09/11/2023 Escobedo Score Blood Edema Fundus Height Fundus Units Glucose Ketones Leukocytes Nitrite Labor Signs Protein Cervic Dilation Cervic Effacement Cervic Station Type Weight in lbs Pre/Post Dialysis Refused Weight 199.577521738614 BP Diastolic BP Location Tested BP Systolic BP Type 78 115 Fetus Heart Rate Present Fetus Movement Comments Flowsheet Date 09/26/2023 Escobedo Score Blood Edema Fundus Height Fundus Units Glucose Ketones Leukocytes Nitrite Labor Signs Protein Cervic Dilation Cervic Effacement Cervic Station Type Weight in lbs Pre/Post Dialysis Refused BP Diastolic BP Location Tested BP Systolic BP Type Fetus Heart Rate Present Fetus Movement Comments Flowsheet Date 10/15/2023 Escobedo Score Blood Edema Fundus Height Fundus Units Glucose Ketones Leukocytes Nitrite Labor Signs Protein Cervic Dilation Cervic Effacement Cervic Station Type Weight in lbs Pre/Post Dialysis Refused With clothes 190.384130554059 BP Diastolic BP Location Tested BP Systolic BP Type 78 R arm 118 standing Fetus Heart Rate Present A 150 Fetus Movement Comments Flowsheet Date 11/14/2023 Escobedo Score Blood Edema Fundus Height Fundus Units Glucose Ketones Leukocytes Nitrite Labor Signs Protein Cervic Dilation Cervic Effacement Cervic Station 19 none none Negative trace Type Weight in lbs Pre/Post Dialysis Refused With clothes 189.308900162385 BP Diastolic BP Location Tested BP Systolic BP Type 76 R arm 120 sitting Fetus Heart Rate Present A 155 Fetus Movement Comments pt cancelled todays office v isit but was sent here in lieu of getting 20wk u.s.Baby girl Tammy Diaz on pap discussed and recommended colposcopy.Rh neg discussed. Menstrual History Last Menstrual Date Menses Monthly On Bcp Conception Prior Menses Frequency Hcg Plus Date Menarche Onset Age false 2 Genetic Screening And Infection History Question Response Note Patient's Age Will Be 35 Yea rs Or Older At Estimated Date of Delivery false Thalassemia (English, Hong Konger, Mediterranean, Or Background): MCV < 80 false Neural Tube Defect (Meningom yelocele, Spina Bifida, Or Anencephaly) false Congenital Heart Defect false Down Syndrome false Neymar-Sachs (eg, Confucianist, Cajun, Gambian-Glacier) f alse Juan Jose Disease false Sickle Cell Disease Or Trait () false Hemophilia Or Other Blood Disorders false Muscular Dystrophy false Cystic Fibrosis false Almira's Chorea false Intellectual Disability/Autism false If Yes, Was Person Tested For Fragile X? false Other Inherited Genetic Or Chromosomal Disorder false Maternal Metabolic Disorder (eg, Type 1 Diabetes , PKU) false Patient Or Baby's Father Had A Child With Defects Not Listed Above false Recurrent Loss, Or A Stillbirth false Medications (including Suppl ements, Vitamins, Herbs, OTC Drugs), Illicit/Recreational Drugs, Alcohol true If Yes, Agent(s) And Strength/Dosage false Any Other Genetic History false Live With Someone With TB Or Exposed To TB false Patient Or Partner Has History Of Genital Herpes false Rash Or Viral Illness Since Last Menstrual Perio d false History Of STD, Gonorrhea, Chlamydia, HPV, Syphi lis false Other Infection History false History of HIV false History of Hepatitis false Prior GBS-infected child false Hemoglobinopathy Or Carrier false Other Structural Defect false Recent Travel History Outside of Country false Mental Retardation/Autism true dads s [place] Delivery Information Delivery Date Delivery Type Labor Anesthesia Weeks Gestation Incision Type Labor Labor Length Hrs Delivered By Post Complications Tubal Sterilization Discharge Date Comments Discharge Information Feeding Method Contraceptive Method Maternal HG B and HCT Levels
[2025-07-24 08:10] VITALS: BP 119/84; PULSE 106; RESP 17; TEMP 36.7; O2SAT 96
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
== END 2025-07-24 08:40 | disposition home or self-care (01) ==
PROVIDERS: Emergency Provider Emergency Medicine
DX: A08.4 Viral intestinal infection, unspecified (principal)
CPT/HCPCS: 99282

== ENCOUNTER 2025-07-30 11:58 | Emergency (ER) | payer SELFPAY ==
[2025-07-30 12:02] VITALS: BP 120/72; PULSE 91; RESP 16; TEMP 36.9; O2SAT 97; BMI 36.0
--- OUTSIDE RECORDS SUMMARY | 2025-07-30 12:05 | XMS_ITS | Clinical Summary ---
Author Organization [employer] [facility] Address [address] 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
--- OUTSIDE RECORDS SUMMARY | 2025-07-30 12:05 | XMS_ITS | Data Portability ---
Author Organization [facility] Ronny Murguia, [facility] Address [address] [address] Assessment Encounter Date Assessment Date Assessment LastModified [...] quantitativ e immunoassay , serum 2022 023 iGrow - Dein Lernprogramm im Leben [facility], [address] [place] [address] 248, [address], [place], [address], 3 07:25:57 urinalysis, complete 2022 023 iGrow - Dein Lernprogramm im Leben [facility], [address] [place] [address], [address], [place], [address], 3 07:25:53 hepatitis C Ab, serum 2022 023 iGrow - Dein Lernprogramm im Leben [facility], [address] [facility] [address], [address], [place], [place], [address], 3 12:07:22 chlamydia + gonorrhea DNA panel, unspecified specimen 2022 023 iGrow - Dein Lernprogramm im Leben [facility], [address] [place] [address] 248, [address], [place], [address], 3 12:07:14 trichomonas vaginalis DNA, PCR, unspecified specimen 2022 023 [facility] [facility], [address] [place] [address] 248, [address], [place], [address], 3 12:07:17 drug test, urine 2022 023 [employer] [facility], [address] [place] [address] 248, [address], [place], [address], 4 08:09:03 ABO group, blood 2022 023 [email or web address] [employer] [facility], [address] [place] [address] 248, [address], [place], [address], 4 08:09:03 ABO group + Rh type, blood (donor) 2022 023 [email or web address] [employer] [facility], [address] [place] [address] 248, [address], [place], [address], 4 08:09:03 blood group antibody investigati on, plasma or RBC 2022 023 [employer] [facility], [address] [place] [address] 248, [address], [place], [address], 4 08:09:03 HBsAg (hepatitis B surface Ag), serum 2022 023 iGrow - Dein Lernprogramm im Leben [facility], [address] [place] [address], [address], [place], [address], 3 07:25:55 syphilis Ab, igg 2022 023 [email or web address] [facility], [address] [place] [address] 248, [address], [place], [address], 4 08:09:04 rubella Ab, serum 2022 023 [email or web address] 40 Who@ Diagn[facility], [address] [place] [address] 248, [address], [place], [address], 4 08:09:04 CBC w/ auto diff 2022 023 [employer] [facility], [address] [place] [address] 248, [address], [place], [address], 3 07:25:54 culture (colony count), urine 2022 023 [email or web address] 40 Who@ [facility], [address] [place] [address] 248, [address], [place], [address], 4 08:09:04 sher wet prep 2022 023 [facility] ([facility]), [address] [place] [address], [address], 3 17:25:41 pap, LB 2022 023 [employer] [facility], [address] [place] [address] 248, [address], [place], [address], 3 05:16:18 unlisted lab - qnatal(R) advanced 2022 023 [employer] [facility], [address] [place] [address] 248, [address], [place], [address], 3 07:25:57 test, urine [address] ([facility]), [address] [place] [address], [address], 3 09:40:27 Referral None recorded. Procedures None recorded. Surgeries None recorded. Imaging US, obstetric, maternal evaluation + anatomy 2023 024 [email or web address] 2 [facility] ([facility]), [address] [place], [address], 4 11:23:34 US, obstetric, 1st trimester - [address] 2022 023 [email or web address] [facility] ([facility]), [address] [place], [address], 3 14:00:44 Medication Orders ondansetron 4 mg disintegrat ing tablet 2022 023 [facility], [address], [place], [address], 3 12:06:25 Vitamin 27 mg iron-0.8 mg tablet [address], [address], [place], [address], 3 09:40:27 Patient TargetsNo targets recorded. Patient InstructionsNo instructions recorded. Reason for Referral None Reported. Results Created Date Observation Date Name Description Value Unit Range Abnormal Flag Note LastModifiedBy Organization Detail LastModifiedTime 09/11/2009/11/2023 pregn elizabeth test, urine HCG positi ve Not Available [facility] ([facility]) [address] [place] [address], [address], 09/11/2023 13:20:33 10/15/20 23 10/16/2023 URINA LYSIS , COMPL ETE color DARK YELLOW yellow normal Not Available [employer] [facility] [address] [place], [address], 10/16/2023 09:32:03 10/15/20 23 10/16/2023 URINA LYSIS , COMPL ETE appearance TURBID clear abnormal Not Available Who@ [facility] [address] [place], [address], 10/16/2023 09:32:03 10/15/20 23 10/16/2023 URINA LYSIS , COMPL ETE specific gravity 1.030 1.001- 1.035 normal Not Available [address], [address], 10/16/2023 09:32:03 10/15/20 23 10/16/2023 URINA LYSIS , COMPL ETE pH 5.5 5.0-8. 0 normal Not Available [address], [address], 10/16/2023 09:32:03 10/15/20 23 10/16/2023 URINA LYSIS , COMPL ETE glucose NEGATI VE negati ve normal Not Available [address], [address], 10/16/2023 09:32:03 10/15/20 23 10/16/2023 URINA LYSIS , COMPL ETE bilirubin NEGATI VE negati ve normal Not Available [address], [address], 10/16/2023 09:32:03 10/15/20 23 10/16/2023 URINA LYSIS , COMPL ETE ketones TRACE negati ve abnormal Not Available [address], [address], 10/16/2023 09:32:03 10/15/20 23 10/16/2023 URINA LYSIS , COMPL ETE occult blood NEGATI VE negati ve normal Not Available [address], [address], 10/16/2023 09:32:03 10/15/20 23 10/16/2023 URINA LYSIS , COMPL ETE protein TRACE negati ve abnormal Not Available [address], [address], 10/16/2023 09:32:03 10/15/20 23 10/16/2023 URINA LYSIS , COMPL ETE nitrite NEGATI VE negati ve normal Not Available [address], [address], 10/16/2023 09:32:03 10/15/20 23 10/16/2023 URINA LYSIS , COMPL ETE leukocyte esterase 1+ negati ve abnormal Not Available [address], [address], 10/16/2023 09:32:03 10/15/20 23 10/16/2023 URINA LYSIS , COMPL ETE WBC 6-10 /hpf < or = 5 abnormal Not Available [address], [address], 10/16/2023 09:32:03 10/15/20 23 10/16/2023 URINA LYSIS , COMPL ETE RBC NONE SEEN /hpf < or = 2 normal Not Available [address], [address], 10/16/2023 09:32:03 10/15/20 23 10/16/2023 URINA LYSIS , COMPL ETE squamous epithelial cells 6-10 /hpf < or = 5 abnormal Not Available [address], [address], 10/16/2023 09:32:03 10/15/20 23 10/16/2023 URINA LYSIS , COMPL ETE bacteria FEW /hpf none seen abnormal Not Available [facility] [address], [address], 10/16/2023 09:32:03 10/15/20 23 10/16/2023 URINA LYSIS , COMPL ETE calcium oxalate crystals FEW /hpf none or few normal Not Available [address], [address], 10/16/2023 09:32:03 10/15/20 23 10/16/2023 URINA LYSIS , COMPL ETE amorphous sediment MANY /hpf none or few abnormal Not Available [address], [address], 10/16/2023 09:32:03 10/15/20 23 10/16/2023 URINA LYSIS , COMPL ETE hyaline cast 0-1 /lpf none seen abnormal Not Available [address], [address], 10/16/2023 09:32:03 10/15/20 23 10/16/2023 CBC (INCL UDES DIFF/ PLT) white blood cell count 10.0 thous and/u L 3.8-10 .8 normal Not Available [address], [address], 10/16/2023 07:25:54 10/15/20 23 10/16/2023 CBC (INCL UDES DIFF/ PLT) red blood cell count 4.51 gary on/uL 3.80-5 .10 normal Not Available [address], [address], 10/16/2023 07:25:54 10/15/20 23 10/16/2023 CBC (INCL UDES DIFF/ PLT) hemoglobin 13.1 g/dL 11.7-1 5.5 normal Not Available [address], [address], 10/16/2023 07:25:54 10/15/20 23 10/16/2023 CBC (INCL UDES DIFF/ PLT) hematocrit 38.1 % 35.0-4 5.0 normal Not Available [address], [address], 10/16/2023 07:25:54 10/15/20 23 10/16/2023 CBC (INCL UDES DIFF/ PLT) MCV 84.5 fL 80.0-1 00.0 normal Not Available [address], [address], 10/16/2023 07:25:54 10/15/20 23 10/16/2023 CBC (INCL UDES DIFF/ PLT) MCH 29.0 pg 27.0-3 3.0 normal Not Available [address], [address], 10/16/2023 07:25:54 10/15/20 23 10/16/2023 CBC (INCL UDES DIFF/ PLT) MCHC 34.4 g/dL 32.0-3 6.0 normal Not Available [address], [address], 10/16/2023 07:25:54 10/15/20 23 10/16/2023 CBC (INCL UDES DIFF/ PLT) RDW 13.3 % 11.0-1 5.0 normal Not Available [address], [address], 10/16/2023 07:25:54 10/15/20 23 10/16/2023 CBC (INCL UDES DIFF/ PLT) platelet count 270 thous and/u L 140-40 0 normal Not Available [address], [address], 10/16/2023 07:25:54 10/15/20 23 10/16/2023 CBC (INCL UDES DIFF/ PLT) MPV 10.9 fL 7.5-12 .5 normal Not Available [address], [address], 10/16/2023 07:25:54 10/15/20 23 10/16/2023 CBC (INCL UDES DIFF/ PLT) absolute neutrophils 7080 cells /uL 1500-7 800 normal Not Available [address], [address], 10/16/2023 07:25:54 10/15/20 23 10/16/2023 CBC (INCL UDES DIFF/ PLT) absolute lymphocytes 2280 cells /uL 850-39 00 normal Not Available [address], [address], 10/16/2023 07:25:54 10/15/20 23 10/16/2023 CBC (INCL UDES DIFF/ PLT) absolute monocytes 520 cells /uL 200-95 0 normal Not Available [address], [address], 10/16/2023 07:25:54 10/15/20 23 10/16/2023 CBC (INCL UDES DIFF/ PLT) absolute eosinophils 80 cells /uL 15-500 normal Not Available [address], [address], 10/16/2023 07:25:54 10/15/20 23 10/16/2023 CBC (INCL UDES DIFF/ PLT) absolute basophils 40 cells /uL 0-200 normal Not Available [address], [address], 10/16/2023 07:25:54 10/15/20 23 10/16/2023 CBC (INCL UDES DIFF/ PLT) neutrophils 70.8 % normal Not Available [address], [address], 10/16/2023 07:25:54 10/15/20 23 10/16/2023 CBC (INCL UDES DIFF/ PLT) lymphocytes 22.8 % normal Not Available [address], [address], 10/16/2023 07:25:54 10/15/20 23 10/16/2023 CBC (INCL UDES DIFF/ PLT) monocytes 5.2 % normal Not Available [address], [address], 10/16/2023 07:25:54 10/15/20 23 10/16/2023 CBC (INCL UDES DIFF/ PLT) eosinophils 0.8 % normal Not Available [address], [address], 10/16/2023 07:25:54 10/15/20 23 10/16/2023 CBC (INCL UDES DIFF/ PLT) basophils 0.4 % normal Not Available [address], [address], 10/16/2023 07:25:54 10/15/20 23 10/16/2023 HEPAT ITIS B SURFA CE ANTIG EN W/REF L CONFI RM hepatitis B surface antigen NON-RE ACTIVE non-re active normal For addit ional infor nuno arteaga, ruddy e refer to http: //[facility] n.que stdia gnost ics.c om/fa q/FAQ 202 (This link is being provi ded for infor matio nal/ educa reggie l purpo ses only. ) Not Available [address], [address], 10/16/2023 08:21:32 10/15/20 23 10/16/2023 HEPAT ITIS [...] a test for HCV RNA (test code 11142 ) is sugge sted. For addit ional infor matio n pleas e refer to http: //[facility] n.que stdia gnost ics.c om/fa q/FAQ 22v1 (This link is being provi ded for infor matio nal/ educa reggie l purpo ses only. ) Not Available [address], [place], [address], 10/16/2023 09:01:59 10/15/20 23 10/16/2023 RUBEL LA [...] virus . Not Available [facility] [address] , [place], [address], 10/16/2023 14:54:57 10/15/20 23 10/16/2023 HIV 1/2 [...] matio n pleas e refer to http: //[facility] catmally n.que stdia gnost ics.c om/fa q/FAQ 106 (This link is being provi ded for infor matio nal/ educa reggie l purpo ses only. ) The perfo rmanc e of this assay has not been clini heath valid ated in patie nts less than 2 years old. Not Available [facility] [address] [place], [address], 10/16/2023 09:02:00 10/15/20 23 10/31/2023 QNATA L(R) ADVAN YOGESH number of fetuses? 1 Not Available [facility] [address] [address] [place], [address], 10/31/2023 20:24:39 10/15/20 23 10/31/2023 QNATA L(R) ADVAN YOGESH advanced maternal age? NO Not Available [facility] [address] [place], [address], 10/31/2023 20:24:39 10/15/20 23 10/31/2023 QNATA L(R) ADVAN YOGESH abnormal jose? NO Not Available [facility] [address] [address] [place], [address], 10/31/2023 20:24:39 10/15/20 23 10/31/2023 QNATA L(R) ADVAN YOGESH abnormal US? NO Not Available Who@ [facility] [place] [address] [place], [address], 10/31/2023 20:24:39 10/15/20 23 10/31/2023 QNATA L(R) ADVAN YOGESH personal/fam history? NO Not Available [facility] [address] [address] [place], [address], 10/31/2023 20:24:39 10/15/20 23 10/31/2023 QNATA L(R) ADVAN YOGESH interpretati on SEE NOTE This speci men showe d an expec tracy repre senta tion of chrom osome 21, 18, and 13 mater ial. See Bucky mccabe below . Not Available [address], [address], 10/31/2023 20:24:39 10/15/20 23 10/31/2023 QNATA L(R) ADVAN YOGESH trisomy 21 (T21) NEGATI VE Not Available [address], [address], 10/31/2023 20:24:39 10/15/20 23 10/31/2023 QNATA L(R) ADVAN YOGESH trisomy 18 (T18) NEGATI VE Not Available [address], [address], 10/31/2023 20:24:39 10/15/20 23 10/31/2023 QNATA L(R) ADVAN YOGESH trisomy 13 (T13) NEGATI VE Not Available [address], [address], 10/31/2023 20:24:39 10/15/20 23 10/31/2023 QNATA L(R) ADVAN YOGESH Y chromosome NOT DETECT ED Not Available [address], [address], 10/31/2023 20:24:39 10/15/20 23 10/31/2023 QNATA L(R) ADVAN YOGESH Y chr. interpretati on SEE NOTE Consi stent with a femal e fetus . Not Available [address], [address], 10/31/2023 20:24:39 10/15/20 23 10/31/2023 QNATA L(R) ADVAN YOGESH sex chromosome NO ANEUPL OIDY Not Available [address], [address], 10/31/2023 20:24:39 10/15/20 23 10/31/2023 QNATA L(R) ADVAN YOGESH sex chromosome interp SEE NOTE No appar ent abnor malit y was detec tracy. See Limi tatio ns below . Not Available [address], [address], 10/31/2023 20:24:39 10/15/20 23 10/31/2023 QNATA L(R) ADVAN YOGESH microdeletio n NOT DETECT ED Not Available [address], [address], 10/31/2023 20:24:39 10/15/20 23 10/31/2023 QNATA L(R) ADVAN YOGESH microdeletio n interp SEE NOTE No appar ent abnor malit y was detec tracy. See Limi tatio ns below . Not Available [address], [address], 10/31/2023 20:24:39 10/15/20 23 10/31/2023 QNATA L(R) ADVAN YOGESH gestational age(in weeks) 14 Not Available [address], [address], 10/31/2023 20:24:39 10/15/20 23 10/31/2023 QNATA L(R) ADVAN YOGESH gestational age (in days) 6 Not Available [address], [address], 10/31/2023 20:24:39 10/15/20 23 10/31/2023 QNATA L(R) ADVAN YOGESH fraction 7.20% Not Available [address], [address], 10/31/2023 20:24:39 10/15/20 23 10/31/2023 QNATA L(R) ADVAN YOGESH laboratory comments SEE NOTE Labor atory testi ng super vised and resul ts monit ored by Tara Newell ch-Barrios wks, Ph.D. , DABMG G, [facility]. Not Available [employer] [facility] [address], [place], [address], 10/31/2023 20:24:39 10/15/20 23 10/31/2023 QNATA L(R) [...] unexp torrey d cause s. Not Available Who@ [facility] [address] [place], [address], 10/31/2023 20:24:39 10/15/20 23 10/31/2023 QNATA L(R) [...] yan tical asses sment . Not Available Who@ [facility] [address] [place], [address], 10/31/2023 20:24:39 10/15/20 23 10/31/2023 QNATA L(R) [...] mined by [facility] Luke montgomery Todd [facility] . It has not been clear ed [...] for clini cynthia purpo ses. Not Available [employer] [facility] [address] , [place], [address], 10/31/2023 20:24:39 10/15/20 23 10/17/2023 RPR (DX) W/REF L TITER AND T. PALLI DUM AB, IA RPR (DX) w/refl titer and confirmatory testing NON-RE ACTIVE non-re active normal No labor atory evide nce of syphi lis. If recen t expos ure is suspe cted, submi t a new sampl e in 2-4 weeks . Not Available [address] [place], [address], 10/17/2023 13:24:33 10/15/20 23 10/16/2023 ANTIB NIRMALA [...] alloi mmuni zed pregn elizabeth. Not Available [address] [address] [place], [address], 10/16/2023 17:25:00 10/15/20 23 10/16/2023 ABO GROUP AND RH TYPE ABO group O Not Available [address] [place], [address], 10/16/2023 17:25:02 10/15/20 23 10/16/2023 ABO GROUP AND RH TYPE Rh type RH(D) NEGATI VE For addit ional infor ruddy brian e refer to http: //saba arteaga.Que stDia gnost ics.c om/fa q/FAQ 111 (This link is being provi ded for infor nuno luciano/ educa reggie l purpo ses only. ) Not Available Who@ [facility] [address] [place], [address], 10/16/2023 17:25:02 10/15/20 23 10/17/2023 DRUG MONIT OR, PANEL 1, SCREE N, URINE amphetamines NEGATI VE NG/mL <500 See Note A See Note A Not Available [address], [place], [address], 10/17/2023 10:56:54 10/15/20 23 10/17/2023 DRUG MONIT OR, PANEL 1, SCREE N, URINE barbiturates NEGATI VE NG/mL <300 See Note A See Note A Not Available [address], [place], [address], 10/17/2023 10:56:54 10/15/20 23 10/17/2023 DRUG MONIT OR, PANEL 1, SCREE N, URINE benzodiazepi mattie NEGATI VE NG/mL <100 See Note A See Note A Not Available Who@ [address], [place], [address], 10/17/2023 10:56:54 10/15/20 23 10/17/2023 DRUG MONIT OR, PANEL 1, SCREE N, URINE cocaine metabolite NEGATI VE NG/mL <150 See Note A See Note A Not Available Who@ [address], [place], [address], 10/17/2023 10:56:54 10/15/20 23 10/17/2023 DRUG MONIT OR, PANEL 1, SCREE N, URINE marijuana metabolite NEGATI VE NG/mL <20 See Note A See Note A Not Available Who@ [address], [place], [address], 10/17/2023 10:56:54 10/15/20 23 10/17/2023 DRUG MONIT OR, PANEL 1, SCREE N, URINE methadone metabolite NEGATI VE NG/mL <100 See Note A See Note A Not Available [address], [place], [address], 10/17/2023 10:56:54 10/15/20 23 10/17/2023 DRUG MONIT OR, PANEL 1, SCREE N, URINE opiates NEGATI VE NG/mL <100 See Note A See Note A Not Available [address] [address], [place], [address], 10/17/2023 10:56:54 10/15/20 23 10/17/2023 DRUG MONIT OR, PANEL 1, SCREE N, URINE oxycodone NEGATI VE NG/mL <100 See Note A See Note A Not Available [address], [place], [address], 10/17/2023 10:56:54 10/15/20 23 10/17/2023 DRUG MONIT OR, PANEL 1, SCREE N, URINE phencyclidin e NEGATI VE NG/mL <25 See Note A See Note A Not Available [address], [place], [address], 10/17/2023 10:56:54 10/15/20 23 10/17/2023 DRUG MONIT OR, PANEL 1, SCREE N, URINE creatinine 328.5 mg/dL > or = 20.0 Not Available [address] , [place], [address], 10/17/2023 10:56:54 10/15/20 23 10/17/2023 DRUG MONIT OR, PANEL 1, SCREE N, URINE pH 6.3 4.5-9. 0 Not Available [address] , [place], [address], 10/17/2023 10:56:54 10/15/20 23 10/17/2023 DRUG MONIT OR, PANEL 1, SCREE N, URINE oxidant NEGATI VE mcg/m L <200 Not Available [address], [place], [address], 10/17/2023 10:56:54 10/15/20 23 10/17/2023 DRUG MONIT [...] by a defin itive metho d. [facility] needi ng Inter preta tion sathya tance , pleas e conta ct us at 1.877 .40.R XTOX (1.87 7.407 .9869 ) M-F, 8am to 10pm EST Not Available [address] [address] [place], [address], 10/17/2023 10:56:57 10/15/20 23 10/16/2023 CULTU RE, URINE , ROUTI NE culture SEE NOTE Not Available [facility] [address] [place], [address], 10/16/2023 07:26:00 10/15/20 23 10/16/2023 CULTU RE, URINE , ROUTI NE culture, urine, routine SEE NOTE CULTU RE, URINE , ROUTI NE Micro Numbe r: [id number] Test Statu s: Final Speci men [...] Cultu re Trans port Tube. Not Available Who@ [facility] [address] [place], [address], 10/17/2023 00:40:18 10/15/20 23 10/17/2023 IMAGE -GUID ED PAP W/AGE BASED SCR,W /CT/N G/TRI CH comment Not Available [address], [address], 10/17/2023 05:16:18 10/15/20 23 10/17/2023 IMAGE -GUID ED PAP W/AGE BASED SCR,W /CT/N G/TRI CH report status: Not Available [address] [place], [address], 10/17/2023 05:16:18 10/15/20 23 10/17/2023 IMAGE -GUID ED PAP W/AGE BASED SCR,W /CT/N G/TRI CH clinical information: Not Available [address] [address] [place], [address], 10/17/2023 05:16:18 10/15/20 23 10/17/2023 IMAGE -GUID ED PAP W/AGE BASED SCR,W /CT/N G/TRI CH LMP: Not Available [address] [address] [place], [address], 10/17/2023 05:16:18 10/15/20 23 10/17/2023 IMAGE -GUID ED PAP W/AGE BASED SCR,W /CT/N G/TRI CH prev. Pap: Not Available [address] [address] [place], [address], 10/17/2023 05:16:18 10/15/20 23 10/17/2023 IMAGE -GUID ED PAP W/AGE BASED SCR,W /CT/N G/TRI CH prev. BX: Not Available [address], [address], 10/17/2023 05:16:18 10/15/20 23 10/17/2023 IMAGE -GUID ED PAP W/AGE BASED SCR,W /CT/N G/TRI CH source: Not Available [address] [address] [place], [address], 10/17/2023 05:16:18 10/15/20 23 10/17/2023 IMAGE -GUID ED PAP W/AGE BASED SCR,W /CT/N G/TRI CH statement of adequacy: Not Available [address] [address] [place], [address], 10/17/2023 05:16:18 10/15/20 23 10/17/2023 IMAGE -GUID ED PAP W/AGE BASED SCR,W /CT/N G/TRI CH general categorizati on: Not Available [address] [address] [place], [address], 10/17/2023 05:16:18 10/15/20 23 10/17/2023 IMAGE -GUID ED PAP W/AGE BASED SCR,W /CT/N G/TRI CH interpretati on/result: Not Available [address] , [place], [address], 10/17/2023 05:16:18 10/15/20 23 10/17/2023 IMAGE -GUID ED PAP W/AGE BASED SCR,W /CT/N G/TRI CH infection: Not Available [address] [address] [place], [address], 10/17/2023 05:16:18 10/15/20 23 10/17/2023 IMAGE -GUID ED PAP W/AGE BASED SCR,W /CT/N G/TRI CH comment: Not Available [address] [address] [place], [address], 10/17/2023 05:16:18 10/15/20 23 10/17/2023 IMAGE -GUID ED PAP W/AGE BASED SCR,W /CT/N G/TRI CH cytotechnolo gist: Not Available [address] [address] [place], [address], 10/17/2023 05:16:18 10/15/20 23 10/17/2023 IMAGE -GUID ED PAP W/AGE BASED SCR,W /CT/N G/TRI CH review cytotechnolo gist: Not Available [address] [address] [place], [address], 10/17/2023 05:16:18 10/15/20 23 10/17/2023 IMAGE -GUID ED PAP W/AGE BASED SCR,W /CT/N G/TRI CH pathologist: Not Available [address] [address] [place], [address], 10/17/2023 05:16:18 10/15/20 23 10/17/2023 IMAGE -GUID ED PAP W/AGE BASED SCR,W /CT/N G/TRI CH chlamydia trachomatis RNA, tma, urogenital NOT DETECT ED not detect ed normal Not Available [address] [address] [place], [address], 10/17/2023 05:16:18 10/15/20 23 10/17/2023 IMAGE -GUID ED PAP W/AGE BASED SCR,W /CT/N G/TRI CH neisseria gonorrhoeae RNA, tma, urogenital NOT DETECT ED not detect ed normal Not Available [facility] [address] [address] [place], [address], 10/17/2023 05:16:18 10/15/20 23 10/17/2023 IMAGE -GUID [...] l purpo ses only. ) Not Available [employer] [address] [address], [place], [address], 10/17/2023 05:16:18 10/15/20 23 10/17/2023 IMAGE -GUID ED PAP W/AGE BASED SCR,W /CT/N G/TRI CH trichomonas vaginalis, ql tma, Pap vial NOT DETECT ED not detect ed normal The yan tical perfo rmanc e valery cteri stics of this assay have been deter mined by Who@ Diagn ashly s. The modif icati ons have not been clear ed or appro benigno by the FDA. This assay has been valid ated pursu ant to the CLIA regul ation s and is used for clini cynthia purpo ses. For addit ional infor ruddy brian e refer to http: //[facility] charlene anhque stdia gnost ics.c om/ faq/T marcos monas tma (This link is being provi ded for infor matio n/ educa reggie l purpo ses only. ) Not Available [employer] [address] [address], [place], [address], 10/17/2023 05:16:18 10/15/20 23 10/18/2023 IMAGE -GUID ED PAP W/AGE BASED SCR,W /CT/N G/TRI CH comment This order for age-b ased cervi cynthia cance r and STI scree dann follo ws ACOG guide lines (PB 168, 140, FAQ07 1). See indiv idual assay s for perfo rming site locat ion. Not Available [employer] [address] [address] [place], [address], 10/18/2023 17:12:05 10/15/20 23 10/18/2023 IMAGE -GUID ED PAP W/AGE BASED SCR,W /CT/N G/TRI CH clinical information: normal Pregn ant Not Available [address] [address] [place], [address], 10/18/2023 17:12:05 10/15/20 23 10/18/2023 IMAGE -GUID ED PAP W/AGE BASED SCR,W /CT/N G/TRI CH LMP: normal NONE GIVEN Not Available [address] [place], [address], 10/18/2023 17:12:05 10/15/20 23 10/18/2023 IMAGE -GUID ED PAP W/AGE BASED SCR,W /CT/N G/TRI CH prev. Pap: normal NONE GIVEN Not Available [address], [address], 10/18/2023 17:12:05 10/15/20 23 10/18/2023 IMAGE -GUID ED PAP W/AGE BASED SCR,W /CT/N G/TRI CH prev. BX: normal NONE GIVEN Not Available [address], [address], 10/18/2023 17:12:05 10/15/20 23 10/18/2023 IMAGE -GUID ED PAP W/AGE BASED SCR,W /CT/N G/TRI CH source: normal Cervi x, Endoc ervix Not Available [address], [address], 10/18/2023 17:12:05 10/15/20 23 10/18/2023 IMAGE -GUID ED PAP W/AGE BASED SCR,W /CT/N G/TRI CH statement of adequacy: normal Satis facto ry for evalu ation . Endoc ervic al/tr ansfo rmati on zone compo nent prese nt. Age and/o r menst rual statu s not provi ded Not Available [address] [address] [place], [address], 10/18/2023 17:12:05 10/15/20 23 10/18/2023 IMAGE -GUID ED PAP W/AGE BASED SCR,W /CT/N G/TRI CH general categorizati on: abnormal Cytol ogy Resul ts: Epith elial Cell Abnor malit y Not Available [address] [address] [place], [address], 10/18/2023 17:12:05 10/15/20 23 10/18/2023 IMAGE -GUID ED PAP W/AGE BASED SCR,W /CT/N G/TRI CH interpretati on/result: abnormal Low Grade Squam ous Intra epith elial Lesio n (LSIL ) Not Available [address] [address] [place], [address], 10/18/2023 17:12:05 10/15/20 23 10/18/2023 IMAGE -GUID ED PAP W/AGE BASED SCR,W /CT/N G/TRI CH comment: normal This Pap test has been evalu ated with sergiou pringle techn ology . Not Available [address] [address], [place], [address], 10/18/2023 17:12:05 10/15/20 23 10/18/2023 IMAGE -GUID ED PAP W/AGE BASED SCR,W /CT/N G/TRI CH cytotechnolo gist: normal GAZ, CT( CP) CT scree dann locat ion: [facility] [address], [address], [place] [address] Not Available [address] [address] [place], [address], 10/18/2023 17:12:05 10/15/20 23 10/18/2023 IMAGE -GUID ED PAP W/AGE BASED SCR,W /CT/N G/TRI CH pathologist: normal Eladia raymundo MD, Board Certi fied in Anato krista Patho logy (elec troni c signa ture) Not Available [address] [address] [place], [address], 10/18/2023 17:12:05 10/15/20 23 10/18/2023 IMAGE -GUID [...] with histo hardik and curre nt clini cynhtia infor matio n. Not Available [address] [address] [place], [address], 10/18/2023 17:12:05 10/15/20 23 10/18/2023 IMAGE -GUID ED PAP W/AGE BASED SCR,W /CT/N G/TRI CH chlamydia trachomatis RNA, tma, urogenital NOT DETECT ED not detect ed normal Not Available [address] [place], [address], 10/18/2023 17:12:05 10/15/20 23 10/18/2023 IMAGE -GUID ED PAP W/AGE BASED SCR,W /CT/N G/TRI CH neisseria gonorrhoeae RNA, tma, urogenital NOT DETECT ED not detect ed normal Not Available [facility] [address] [address] [place], [address], 10/18/2023 17:12:05 10/15/20 23 10/18/2023 IMAGE -GUID [...] refer to https ://ed ucati on.qu estdi [employer]. com/f aq/FA Q154 (This link is being provi ded for infor nuno n/ educa reggie l purpo ses only. ) Not Available [employer] [facility] [address] [place], [address], 10/18/2023 17:12:05 10/15/20 23 10/18/2023 IMAGE -GUID ED PAP W/AGE BASED SCR,W /CT/N G/TRI CH trichomonas vaginalis, ql tma, Pap vial NOT DETECT ED not detect ed normal The yan tical perfo rmanc e valery cteri stics of this assay have been deter mined by ADP ostic s. The modif icati ons have [...] l purpo ses only. ) Not Available [employer] [facility] [address] [address] , [place], [address], 10/18/2023 17:12:05 10/15/20 23 10/15/2023 sher wet prep Whiff negati ve Not Available [facility] ([facility]) [address] [place] [address], [address], 10/15/2023 10:30:27 10/15/20 23 10/15/2023 sher wet prep Epi 12-15 Not Available [facility] ([facility]) [address] [place], [address], 10/15/2023 10:30:27 10/15/20 23 10/15/2023 sher wet prep WBC 4-6 Not Available [facility] ([facility]) [address] [place], [address], 10/15/2023 10:30:27 10/15/20 23 10/15/2023 sher wet prep RBC negati ve Not Available [facility] ([facility]) [address] [place], [address], 10/15/2023 10:30:27 10/15/20 23 10/15/2023 sher wet prep Bacteria trace of small rods Not Available [facility] ([facility]) [address] [place], [address], 10/15/2023 10:30:27 10/15/20 23 10/15/2023 sher wet prep Fungus none seen Not Available [facility] ([facility]) [address] [place], [address], 10/15/2023 10:30:27 10/15/20 23 10/15/2023 sher wet prep Clue Cells positi ve Not Available [facility] ([facility]) [address] [place], [address], 10/15/2023 10:30:27 10/15/20 23 10/15/2023 sher wet prep Other negati ve Not Available [facility] ([facility]) [address] [place], [address], 10/15/2023 10:30:27 Result Notes None recorded. Problems Name Problem SNOMED Code Status Onset Date Resolution Date Notes Provider Name and Address Organization Details Recorded Time 82594631 Active 023 ZITA jaimes [employer], Ronny 3 12:42:06 Migraine 83648692 Active 023 ZITA jaimes [employer], Ronny 3 12:41:46 Bleeding from nose 838380171 Active 023 ZITA VAZQUEZ [facility], Ronny 3 12:41:59 59149748 Active 023 ZITA VAZQUEZ [facility], AsifLPierre 3 12:42:06 Problem Notes None recorded. Procedures Surgical History Date Name Laterality Status Provider Name and Address Organization Details Recorded Time 03/28/2022 Date of Last Pap Smear completed ZITA VAZQUEZ [employer], [place]ny 09/11/2023 12:42:29 Imaging Results None recorded. Procedure Notes None recorded. Medical Equipment None Reported. Allergies Allergen ID Allergen Name Allergen Category Reaction Reaction Severity Criticality Documentation Date Start Date Code Code System Note Provider Name and Address Organization Details Recorded Time 81282 Product containin g penicilli n (product) medicatio n anaphylax is Not available high 09/11/2023 90717 8001 SNOMED ZITA VAZQUEZ [facility], AsifLYanniCYanni 3 12:41:12 Medications Name [...] Updated DateTime 4 167.64 cm 30.5 kg/m2 10725.9 5793 g 97.5 [degF] 98 % 98 % 108 /min 120/76 mm[Hg] [facility] 4 14:41:39 Date Recorded Body weight Body mass index (BMI) Body height Body temperature Oxygen saturation Oxygen saturation in Arterial blood by Pulse oximetry Heart rate Systolic And Diastolic Provider Name and Address Organization Details Last Updated DateTime 3 44799.8 8163 g 32.1 kg/m2 167.64 cm 97.2 [degF] 97 % 97 % 88 /min 115/78 mm[Hg] ZITA VAZQUEZ [facility] 3 12:37:22 Date Recorded Body weight Provider Name an Address Organization Details Last Updated DateTime 10/15/2023 57224.5503 g Francia Jiménez MD [address] [place] [address], [address], [facility] 10/15/2023 11:56:34 Date Recorded Body height Body mass index (BMI) Body temperature Oxygen saturation Oxygen saturation in Arterial blood by Pulse oximetry Heart rate Systolic And Diastolic Provider Name and Address Organization Details Last Updated DateTime 3 167.64 cm 30.7 kg/m2 97.8 [degF] 97 % 97 % 80 /min 118/78 mm[Hg] [facility] 3 11:32:27 Social History None recorded. Functional Status Question Answer Note LastModified by Organizat ion Details LastModified Time Do you use any illicit or recreational drugs? No [email or web address] Information not available 10/15/2023 What is your level of alcohol consumption? None [email or web address] Information not available 10/15/2023 Mental Status None recorded. Family History Relationship Description Onset Age of this Age Resolved Age Notes LastModified by Organization Details LastModified Time Father No current problems or disability [email or web address] Not available 12:42:55 Mother No current problems or disability [email or web address] Not available 12:42:55 Medical History Condition Response Coronary Artery Disease N Other N Gout N Kidney Stones N Blood Diseases N Hyperthyroidism N Breast Cancer N Blood Transfusion N Hypothyroidism N Depression N COPD N Lung Disease N Defects or Inherited Disease N Developmental or Behavioral Disorders N Breast Problem N Difficulty Swallowing N Anesthesia Complications N Anxiety Disorder N Meniere's disease N Muscle, Joint, or Bone Problems N Vision or Eye Problems N Arthritis N Polyps N Infertility N Cancer N Varicosities N Stroke N Endometriosis N Bladder or Kidney Problems N High Cholesterol N Liver Disease N Headaches Y Fibromyalgia N Kidney Disease N Allergies/Hayfever N Heart Problems [...] N Heart Disease N Pulmonary Embolism N Chronic Ear Infections N Pre-Eclampsia N Hypertension N Chicken Pox N Autism Spectrum Disorder (ASD) N Osteoporosis N Thrombophilias N Gynecological History Statement/Question Response Abnormal Pap N Date of Last Pap Smear 03/28/2022 Obstetrics History GPAL:G 1 P 0 0 0 0 Type Value Spontaneous 0 Living 0 Total 1 Immunizations Vaccine Type Date Status Note Provider Nam e and Address Organization Details Recorded Time Hib, unspecified formulation 0 completed ZITA jaimes [facility] 09/11/2023 12:40:56 Hib, unspecified formulation 1 completed ZITA jaimes [facility] 09/11/2023 12:40:56 Hib, unspecified formulation 0 completed ZITA jaimes [facility] 09/11/2023 12:40:56 Hib, unspecified formulation 0 completed ZITA jaimes [facility] 09/11/2023 12:40:56 [facility]11[facility]2023 12:40:56 MMR 5 completed ZITA VAQZUEZ [facility] 09/11/2023 12:40:56 COVID-19, mRNA, LNP-S, PF, 30 mcg/0.3 mL dose, agnieszka-sucrose 2 [facility] 09/11/2023 12:40:56 COVID-19, mRNA, LNP-S, PF, 30 mcg/0.3 mL dose, agnieszka-sucrose 2 completed [facility] 09/11/2023 12:40:56 pneumococcal conjugate PCV 7 2 completed ZITA VAZQUEZ [facility] 09/11/2023 12:40:56 pneumococcal conjugate PCV 7 1 completed ZITA MILLERH VAZQUEZ [facility] 09/11/2023 12:40:56 Tdap 4 completed ZITA MILLERH VAZQUEZ [facility] 09/11/2023 12:40:56 varicella 1 completed ZITA KEON VAZQUEZ [facility] 09/11/2023 12:40:56 Hep B, adolescent or pediatric 0 completed ZITA MILLERH VAZQUEZ [facility] 09/11/2023 12:40:56 Hep B, adolescent or pediatric 0 completed ZITA KEON VAZQUEZ [facility] 09/11/2023 12:40:56 Hep B, adolescent or pediatric 0 completed ZITA MILLERH VAZQUEZ [facility] 09/11/2023 12:40:56 DTaP 0 completed ZITA jaimes, [facility] 09/11/2023 12:40:56 DTaP 1 completed ZITA VAZQUEZ null, [facility] 09/11/2023 12:40:56 DTaP 0 completed ZITA VAZQUEZ null, [facility] 09/11/2023 12:40:56 DTaP 5 completed ZITA jaimes, [facility] 09/11/2023 12:40:56 DTaP 0 completed ZITA jaimes, [facility] 09/11/2023 12:40:56 Influenza, split virus, quadrivalent, PF 2 completed ZITA jaimes, [facility] 09/11/2023 12:40:56 Past Encounters Encounter ID Performer Location Encounter Start Date Encounter Closed Date Diagnosis/Indication Diagnosis SNOMED-CT Code Diagnosis ICD10 Code Diagnosis IMO Codes Diagnosis Note [id number] Francia Jiménez MD [facility] ([facility]) [address] [place] [phone] 09/11/2023 11:49:09 09/11/2023 14:31:20 87819220 Z33.1 [id number] Francia Jiménez MD [facility] ([facility]) [address] [place] [phone] 09/26/2023 10:00:36 09/26/2023 14:03:31 [id number] Francia Jiménez MD [facility] ([facility]) [address] [place] [phone] 10/15/2023 10:59:06 10/15/2023 13:36:30 Gestation period, 14 weeks 75709278 Z3A.14 Normal pre gnancy in primigravida 2308332019 93549 Z34.02 Nausea and vomiting 1693 1999 R11.2 [id number] Francia Jiménez MD [facility] ([facility]) [address] [place] [phone] 11/14/2023 14:34:28 11/14/2023 16:21:29 Gestation period, 19 weeks 49164778 Z3A.19 Normal pre gnancy in primigravida 9684716153 71938 Z34.02 Low grade squamous 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 I recommende d pt make a f/u appt for colposcopy . I discussed the procedure in detail. Blood grou p O Rh(D) negative 234909690 Z67.41 pt will need rhogam at 28 weeks. Noncomplia nce with treatment 7026736 Z91.199 pt did not f/u with her [...] will reschedule her u/s. 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 first [place] at [facility] and [...] Guarantor Name 12/10/2023 [place] Celia Nelson [id number] Celia Nelson 12/04/2023 1 [facility] (MEDICAID HMO) Celia Nelson [id number] Celia Nelson 11/01/2023 1 *SELF PAY* Ryan Nelson 11/24/2023 [employer] - [facility] (MEDICAID HMO) Celia Nelson [id number] Celia Nelson 11/16/2023 [place] [facility] (INSTITUTIONAL) Celia Nelson [id number] Celia Nelson Notes Date Note Type Note Provider Name and Address Organization Details Recorded Time 09/11/2023 text/html ROS as noted in the HPI first positive test before Halloweendogs and cats kept coming up to her - that was the reason why she testedshe has no idea when her period was(father is with her) Francia Jiménez MD [address] [place] [address], [phone], [facility] 09/11/2023 15:39:31 10/15/2023 text/html jr ob routineRep orted by PatientHPIFor associated symptoms, patient reportscramping,nausea ,emesis,headache, anddizzinessbut reportsno abdominal pain,no contractions,no dysuria,no fever,no constipation, andno diarrhea/loose stool.ROS as noted in the HPI Francia Jiménez MD [address] [place] [address], [phone], [facility] 10/28/2023 12:20:30 11/14/2023 text/html jr ob routineRep orted by PatientHPIFor associated symptoms, patient reportsemesisbut reportsno abdominal pain,no cramping,no contractions,no bleeding,no dysuria,no frequency,no nausea,no constipation, andno headache.ROS as noted in the HPI not really feeling movement yet, maybe some flutters Francia Jiménez MD [address] [place] [address], [phone], [facility] 11/17/2023 12:44:56 OBGyn Episode Ob Episode Information Episode Created Date Number of Fetuses Patient Bloodtype Patient rh Status Prepregnancy Weight lbs Domestic Partner Domestic Partner Phone Father Name [employer] Status 09/11/20 23 1 O Negative OPEN [...] Gestation 0 [email or web address] 10/15/2023 04/09/20 24 0 Pre- Flowsheet Flowsheet Date 09/11/2023 Escobedo Score Blood Edema Fundus Height Fundus Units Glucose Ketones Leukocytes Nitrite Labor Signs Protein Cervic Dilation Cervic Effacement Cervic Station Type Weight in lbs Pre/Post Dialysis Refused Weight 199.274465490735 BP Diastolic BP Location Tested BP Systolic [...] in lbs Pre/Post Dialysis Refused With clothes 190.517821443378 BP Diastolic BP Location Tested BP Systolic BP Type 78 R arm 118 standing Fetus Heart Rate Present A 150 Fetus Movement Comments Flowsheet Date 11/14/2023 Escobedo Score Blood Edema Fundus Height Fundus Units Glucose Ketones Leukocytes Nitrite Labor Signs Protein Cervic Dilation Cervic Effacement Cervic Station 19 none none Negative trace Type Weight in lbs Pre/Post Dialysis Refused With clothes 189.866446847431 BP Diastolic BP Location Tested BP Systolic [...] At Estimated Date of Delivery false Thalassemia (Latvian, Botswanan, Mediterranean, Or Background): MCV < 80 false Neural Tube Defect (Meningom yelocele, Spina Bifida, Or Anencephaly) false Congenital Heart Defect false Down Syndrome false Neymar-Sachs (eg, Protestant, Cajun, Italian-Faroese) f alse Juan Jose Disease false Sickle Cell Disease Or Trait () false Hemophilia Or Other Blood Disorders false Muscular Dystrophy false Cystic Fibrosis false Lorena's Chorea false Intellectual Disability/Autism false If Yes, [...]
--- OUTSIDE RECORDS SUMMARY | 2025-07-30 12:05 | XMS_ITS | Clinical Summary ---
Author Organization [facility] Address [address] 

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
[2025-07-30] MEDS: tetanus-dipt-pertussis 0.5 mL SDV IM (12:26)
[2025-07-30 12:33] VITALS: BP 117/83; PULSE 90; RESP 17; O2SAT 97
== END 2025-07-30 12:34 | disposition home or self-care (01) ==
PROVIDERS: Emergency Provider Physician Assistant
DX: S61.213A Laceration without foreign body of left middle finger without damage to nail, initial encounter (principal); W25.XXXA Contact with sharp glass, initial encounter
CPT/HCPCS: 90715; 99283